=== PATIENT | female | born 1970 | race Caucasian/White ===

== ENCOUNTER 2019-03-04 16:09 | Outpatient (CLI) | payer MEDICARE, MEDICAID, SELFPAY ==
--- NOTE | 2019-03-04 | XR_ITS ---
WS: [id number] Cervical spine, 3 views, 03/04/2019 Clinical Data: NECK PAIN Comparison: None. Findings: No compression fractures are seen. The disc heights are normal. There is no prevertebral so ft tissue swelling. The odontoid is unremarkable. The soft tissues of the neck and the lung apices ar e normal. There is an infusion catheter with the port overlying the left upper chest. XR/XR cervical spine 3V* [id number] Impression: Negative cervical spine.
== END 2019-03-04 16:10 | disposition home or self-care (01) ==
LOC: RAD 16:14
PROVIDERS: Family Provider Nurse Practitioner Family; PCP Family Medicine; Visit Provider Family Medicine
DX: M54.2 Cervicalgia (principal); G89.29 Other chronic pain
CPT/HCPCS: 72040

== ENCOUNTER 2019-03-18 14:21 | Outpatient (CLI) | payer MEDICARE, MEDICAID, SELFPAY ==
--- NOTE | 2019-03-18 14:55 | MR_ITS ---
WS: [id number] MRI CERVICAL SPINE NONCONTRAST TECHNIQUE: Sagittal T1, T2 and STIR imaging. Axial T2, gradient, and fiesta imaging. CLINICAL INFORMATION: CHRONIC NECK PAIN COMPARISON: MRI FINDINGS: Exaggeration of the normal cervical lordosis. Chronic demyelinating plaque at C5-C6 unchanged from pr evious. No high-grade central canal narrowing. C2-C3: Normal. C3-C4: No significant disc bulging. Mild facet arthropathy. Spinal canal and foramen are patent. C4-C5: Mild disc bulging with slight effacement of ventral thecal sac. Mild right and no significant left foraminal narrowing. Mild facet arthropathy. Spinal canal is patent. C5-C6: Small central disc protrusion with mild central canal stenosis. Moderate facet arthropathy. Mi ld left and no significant right foraminal narrowing. C6-C7: Mild disc bulging. Mild left and no significant right foraminal narrowing. Spinal canal is pat ent. C7-T1: Normal. Visualized brain stem structures: Normal. Prevertebral soft tissues: Normal. MR/MR cervical spin wo con* [id number] IMPRESSION: 1. Chronic demyelinating plaques C5-C6 is unchanged from previous. Cord signal is otherwise normal. 2. Small central disc protrusion C5-C6 with mild central canal stenosis. This is similar in appearance to 2017. 3. Mild bony foraminal narrowing worse at right C4-C5, left C5-C6, and left C6 -C7.
== END 2019-03-18 14:22 | disposition home or self-care (01) ==
LOC: RADWPI 14:24
PROVIDERS: Family Provider Nurse Practitioner Family; PCP Family Medicine; Visit Provider Family Medicine
DX: M50.222 Other cervical disc displacement at C5-C6 level (principal); M48.02 Spinal stenosis, cervical region; M54.2 Cervicalgia; G89.29 Other chronic pain
CPT/HCPCS: 72141

== ENCOUNTER → 2019-04-18 11:21 | Outpatient (BNVA) | payer MEDICARE, MEDICAID, SELFPAY | PROVIDERS: Family Provider Nurse Practitioner Family; PCP Family Medicine; Visit Provider Specialist | DX: G35 Multiple sclerosis (principal); M47.12 Other spondylosis with myelopathy, cervical region; M47.22 Other spondylosis with radiculopathy, cervical region; F17.210 Nicotine dependence, cigarettes, uncomplicated | CPT/HCPCS: 96523; 99214; J0585 ==

== ENCOUNTER 2019-06-11 10:57 | Outpatient (CLI) | payer MEDICARE, MEDICAID, SELFPAY ==
--- NOTE | 2019-06-11 11:00 | XR_ITS ---
WS: [id number] LATERAL CERVICAL SPINE: 3 view. Lateral radiographs are performed in upright neutral, flexion and extension to the patient's toleranc e. HISTORY: Neck pain COMPARISON: 03/04/2019 Mild straightening of the normal cervical lordosis. With flexion and extension no instability. Disc s paces and vertebral bodies are well-maintained. XR/XR cervical spine fl/ex [id number] IMPRESSION: No cervical instability.
== END 2019-06-11 10:58 | disposition home or self-care (01) ==
LOC: RADWPI 11:04
PROVIDERS: Family Provider Nurse Practitioner Family; PCP Family Medicine; Visit Provider Licensed Practical Nurse
DX: M54.2 Cervicalgia (principal)
CPT/HCPCS: 72040

== ENCOUNTER → 2019-07-11 10:11 | Outpatient (BNVA) | payer MEDICARE, MEDICAID, SELFPAY | PROVIDERS: Family Provider Nurse Practitioner Family; PCP Family Medicine; Visit Provider Specialist | DX: G35 Multiple sclerosis (principal); G43.711 Chronic migraine without aura, intractable, with status migrainosus; M47.12 Other spondylosis with myelopathy, cervical region; M47.22 Other spondylosis with radiculopathy, cervical region; Z87.891 Personal history of nicotine dependence | CPT/HCPCS: 64615; 99213; J0585 ==

== ENCOUNTER 2019-07-31 09:55 | Outpatient (CLI) | payer MEDICARE, MEDICAID, SELFPAY ==
[2019-07-31 10:32] LABS: Basophils % 0.4 %; Eosinophils # 0.1 10^3/uL (0.0-0.8); Eosinophils % 2.4 %; Hematocrit 42.8 % (37.0-47.0); Hemoglobin 14.1 g/dL (11.5-15.3); Lymphocytes # 1.4 10^3/uL (0.8-4.8); Mean Corpuscular HGB Conc 32.9 g/dL (30.0-36.0); Mean Corpuscular Hemoglobin 30.7 pg (28.0-34.0); Mean Platelet Volume 11.3 fL (7.4-10.4); Monocytes # 0.4 10^3/uL (0.2-0.9); Monocytes % 7.5 %; Neutrophils # 3.5 10^3/uL (1.8-7.7); Neutrophils % 64.3 %; Nucleated Red Blood Cells % 0 %; Platelet Count 242 10^3/cmm (130-400); Red Cell Distribution Width 12.9 % (12.1-15.1); White Blood Count 5.5 10^3/uL (4.0-10.0)
[2019-07-31 11:11] LABS: Estmated Average Glucose 108; Hemoglobin A1C 5.4 % (4.0-6.0)
[2019-07-31 11:13] LABS: 25 Hydroxy Vitamin D 73 ng/mL (30-100); Alanine Aminotransferase 14 U/L (0-33); Albumin Level 4.4 g/dL (3.5-5.2); Alkaline Phosphatase 70 IU/L (35-105); Anion Gap 14.2 (5-19); Aspartate Amino Transferase 19 U/L (0-32); Blood Urea Nitrogen 9 mg/dL (6-20); Carbon Dioxide 27 mmol/L (22-29); Chloride 106 mmol/L (98-107); Chol HDL Ratio 4.31 mg/dL (0.0-4.40); Cholesterol 155 mg/dL (0-200); Glomerular Filtration Rate 75.9 mL/min (90-130); Glucose 88 mg/dL (65-115); HDL Cholesterol 36 mg/dL (60-100); LDL Cholesterol Calculated 92 mg/dL (50-129); LDL HDL Ratio 2.56 RATIO (0.00-3.22); Osmolality Calculated 291 mOsm/kg (285-295); Potassium 4.2 mmol/L (3.5-5.1); Sodium 143 mmol/L (136-145); Total Bilirubin 0.4 mg/dL (0.15-1.2); Total Protein 7.4 g/dL (6.6-8.7); Triglycerides 137 mg/dL (0-150); Vitamin B12 334 pg/mL (232-1245)
[2019-07-31 11:20] LABS: Creatinine Urine, Random 162 mg/dL (28-217)
[2019-07-31 11:22] LABS: Microalbum Creatinine Ratio Ur 6 mg/dL (0-20); Microalbumin Random Urine < 1 ug/dL (0-20)
[2019-07-31 11:28] LABS: Folate Level 8.2 ng/mL (4.8-37.3)
== END 2019-07-31 09:56 | disposition home or self-care (01) ==
LOC: LAB 10:00
PROVIDERS: Family Provider Nurse Practitioner Family; PCP Family Medicine; Visit Provider Family Medicine
DX: E78.1 Pure hyperglyceridemia (principal); E11.9 Type 2 diabetes mellitus without complications; E55.9 Vitamin D deficiency, unspecified; E53.8 Deficiency of other specified B group vitamins
CPT/HCPCS: 80053; 80061; 82044; 82306; 82607; 82746; 83036; 85025

== ENCOUNTER 2019-09-09 12:00 | Outpatient (CLI) | payer MEDICARE, MEDICAID, SELFPAY ==
[2019-09-09 13:08] LABS: Ferritin 106 ng/mL (15-150); Iron 119 ug/dL (37-145); Percent Saturation 34.6 % (20-50); Phosphorus 3.8 mg/dL (2.5-4.5); Thyroid Stimulating Hormone 1.26 uIU/mL (0.27-4.20); Total Iron Binding Capacity 343 mcg/dl; Unsaturated Iron Binding 224 ug/dL (112-347)
[2019-09-09 13:48] LABS: Calcium 9.2 mg/dL (8.5-10.5)
[2019-09-09 14:05] LABS: Folate Level 14.4 ng/mL (4.8-37.3)
[2019-09-09 19:05] LABS: Parathyroid Hormone 26.2 pg/mL (15-65)
== END 2019-09-09 12:01 | disposition home or self-care (01) ==
LOC: LAB 12:04
PROVIDERS: PCP Family Medicine; Visit Provider Surgery
DX: E66.9 Obesity, unspecified (principal)
CPT/HCPCS: 36415; 82310; 82728; 82746; 83540; 83550; 83735; 83970; 84100; 84443

== ENCOUNTER → 2019-10-03 11:09 | Outpatient (BNVA) | payer MEDICARE, MEDICAID, SELFPAY | PROVIDERS: PCP Family Medicine; Visit Provider Specialist | DX: G43.711 Chronic migraine without aura, intractable, with status migrainosus (principal); G35 Multiple sclerosis | CPT/HCPCS: 64615; 99214; J0585; J1642 ==

== ENCOUNTER 2019-10-09 13:49 | Outpatient (CLI) | payer MEDICARE, MEDICAID, SELFPAY ==
--- NOTE | 2019-10-09 14:00 | MM_ITS ---
WS: [id number] BILATERAL SCREENING DIGITAL MAMMOGRAM WITH CAD HISTORY: MAMMOGRAM COMPARISON: 03/28/2018 Bilateral CC and MLO views submitted. Computer aided detection analyzed. Breast composition: There are scattered areas of fibroglandular density. No suspicious masses, microc alcifications or architectural distortion. Benign calcifications within each breast. MM/[place] [id number] IMPRESSION: BI-RADS: 2-Benign FOLLOW UP: 1 Year Follow-up
--- NOTE | 2019-10-09 14:28 | XR_ITS ---
WS: [id number] EXAM: XR DEXA axial skeleton* [id number] DATE OF EXAMINATION: 10/09/2019, 1441 hours COMPARISON: None. HISTORY: 48 years year old female. Screening for osteoporosis. FINDINGS: Bone density of L1 through L4 is estimated at 1.164 g/cm sq: T-score of -0.1. This falls in the rang e of normal. Bilateral proximal femur regions have bone mineral density estimated at 0.915 and 1.057 g/cm sq, righ t and left respectively, correlating with a T-score of -0.7 and 0.4. This falls in the range of hayley l. 10-year fracture risk for major osteoporotic fracture is 4.3%. XR/XR DEXA axial skeleton* [id number] IMPRESSION: NORMAL BONE MINERAL DENSITY IN THE LUMBAR SPINE AND PROXIMAL FEMUR/FEMORAL NECK REGION.
== END 2019-10-09 13:50 | disposition home or self-care (01) ==
LOC: RADSHAW 13:49
PROVIDERS: PCP Family Medicine; Visit Provider Family Medicine
DX: Z12.31 Encounter for screening mammogram for malignant neoplasm of breast (principal); Z78.0 Asymptomatic menopausal state
CPT/HCPCS: 77067; 77080

== ENCOUNTER → 2019-11-01 09:05 | Outpatient (BNVA) | payer MEDICARE, MEDICAID, SELFPAY | PROVIDERS: PCP Family Medicine; Visit Provider Internal Medicine | DX: Z11.59 Encounter for screening for other viral diseases (principal) | CPT/HCPCS: 87635 ==

== ENCOUNTER 2019-11-05 05:53 | Day surgery (SDC) | payer MEDICARE, MEDICAID, SELFPAY ==
[2019-11-01 16:24] VITALS: BMI 27.1
--- NOTE | 2019-11-01 17:20 | SUR.PREOP ---
PATIENT HAS HX OF MALIGNANT HYPERTHERMIA!!!
[2019-11-05 06:02] VITALS: BP 135/73; PULSE 75; RESP 18; TEMP 36.3; O2SAT 100
--- NOTE | 2019-11-05 06:20 | W.PM.OPSUD ---
Surgery/Procedure H&P Update DATE OF PROCEDURE: November 05, 2019 DATE H&P PERFORMED: 10/21/19 H&P UPDATE INFORMATION: I have reviewed H&P completed within last 30 days, I have examined patient prior to procedure and No changes to prior documentation PREOP DIAGNOSIS: Screening colonoscopy and explantation of left upper chest Port-A-Cath PLANNED PROCEDURE: Operation Date: 11/05/19 07:00 Proposed Procedures p Colonoscopy MALIGNANT [id number] k59.00 G35(Not Applicable) - Rick Benjamin MD s Portacath Removal(Not Applicable) - Rick Benjamin MD
[2019-11-05] MEDS: sodium chloride 0.9% 1,000 ML 30 ML IV (06:27)
--- NOTE | 2019-11-05 06:44 | ANES.PREANE2 ---
Pre-Anesthetic Assessment Pre-Anesthetic Assessment: Height/Weight: Height 1.74 m Weight 82.1 kg Temp Pulse Resp BP Pulse Ox 97.3 F L 75 18 135/73 100 11/05/19 06:02 11/05/19 06:02 11/05/19 06:02 11/05/19 06:02 11/05/19 06:02 Preop Diagnosis: Screening colonoscopy and explantation of left upper chest Port-A-Cath Proposed Procedure: Operation Date: 11/05/19 07:00 Proposed Procedures p Colonoscopy MALIGNANT [id number] k59.00 G35(Not Applicable) - Rick Benjamin MD s Portacath Removal(Not Applicable) - Rick Benjamin MD Familial anesthetic complications: Malignant Hyperthermia Was Beta Yumiko taken within 24 hours: N/A Last intake: Intake Last Liquid Date 11/04/19 Last Liquid Time 23:30 Last Solid Date 11/03/19 Last Solid Time 17:00 Social: Social History: Tobacco and No alcohol Exam: Pre-Anes Outpt Exam: alert, oriented x 3, clear to auscultation bilaterally and regular rate & rhythm Airway: Cervical ROM: WNL MP: 2 Dentition: False Pulmonary: Pulmonary: Asthma GI: GI: GERD Metabolic: Metabolic: DM (improved since weight loss, now diet controlled) Musc/skel: Comments: Multiple Sclerosis - patient aware of risk of exacerbation with any anesthetic Anesthetic Plan: ASA status: 2 Anesthesia: MAC Risk of > 500 ml blood loss (7ml/kg in children): No Other Pertinent Information: hx of malignant hyperthermia Meds/Allergies Current Medications: Current Medications Generic Name Dose Route Start Last Admin Trade Name Freq PRN Reason Stop Dose Admin Sodium Chloride 1,000 mls @ 30 ml s/hr 11/05/19 06:00 11/05/19 06:27 Sodium Chloride 0.9% IV 30 mls/hr .Q24H [place] Administration PFSH Anesthesia PFSH: Medical History (Updated 10/21/19 @ 15:53 by Rick Benjamin MD) Cervical disc disease Cervical disc disorder with myelopathy of mid-cervical region Chronic migraine without aura, intractable, with status migrainosus Chronic neck pain with abnormal neurologic examination DM II (diabetes mellitus, type II), controlled GERD (gastroesophageal reflux disease) Incomplete bladder emptying Malignant hyperthermia Mild cognitive impairment Multiple sclerosis Multiple sclerosis Neurogenic bladder Recurrent UTI Surgical History H/O carpal tunnel repair H/O rotator cuff surgery H/O tubal ligation H/O: hysterectomy History of appendectomy History of cholecystectomy History of tonsillectomy and adenoidectomy Family History Other CAD (coronary artery disease) Diabetes Hypertension Multiple sclerosis Stroke Social History Smoking and tobacco status: current every day smoker cigarettes Packs smoked per day: 0.5 Alcohol intake: never Lives independently: Yes Marital status: / Current occupational status: disabled History of recent travel: No Female Reproductive History: Para: 3 Spontaneous abortions: Yes Data Anesthesia Cardiac Studies: No Data to Display
[2019-11-05] MEDS: lidocaine 2% INJ 20 mL INJECTION (07:17)
--- NOTE | 2019-11-05 07:38 | XR_ITS ---
WS: [id number] EXAM: AP CHEST: PORTABLE SUPINE DATE OF EXAM: 11/05/2019, 0741 hours COMPARISON: Chest x-ray from 03/01/2017 HISTORY: Patient is 48 years old with Port-A-Cath removal. FINDINGS: The cardiac silhouette is normal in size. The mediastinal contours are distorted. Port-A-Cath tubi ng overlies the central mediastinum. Surgical forceps appear to be overlying the peripheral aspect of the Port-A-Cath tubing. The pulmon audrey vascularity is normal. The lungs are clear of infiltrate. There is no effusion or pneumothorax. No acute bony abnormality is seen. XR/XR chest 1V portable [id number] IMPRESSION: Port-A-Cath tubing as described overlying the mediastinum. No pneumothorax or c onsolidating infiltrate. Follow-up upright imaging recommended to be obtained o nce the patient is out of surgery.
[2019-11-05] MEDS: neomycin-poly-bacitracin oint 28 gm 1 APPLIC TOPICAL (08:12)
--- NOTE | 2019-11-05 08:36 | XR_ITS ---
WS: [id number] EXAM: AP CHEST: PORTABLE UPRIGHT DATE OF EXAM: 11/05/2019, 0842 hours COMPARISON: Intraoperative spot images from earlier on the same date. HISTORY: Patient is 48 years old with Port-A-Cath removal. FINDINGS: The cardiac silhouette is normal in size. The mediastinal contours show portions of a residual por t catheter tubing remain in place in the left subclavian region extending into in the proximal SVC re gion. The proximal aspect of the remaining portion of the catheter appears crimped. The pulmonary v ascularity is normal. Lungs are clear other than minimal atelectasis medial right lung base There i s no effusion or pneumothorax. No acute bony abnormality is seen. XR/XR chest 1V portable [id number] IMPRESSION: Portions of the Port-A-Cath tubing remain in place. Minimal atelectasis medial right lung base. No pneumothorax.
--- NOTE | 2019-11-05 08:37 | P.OP_ITS ---
Operative Report Date of procedure: November 05, 2019 Pre-op Diagnosis: Screening colonoscopy and explantation of left upper chest Port-A-Cath Post-op diagnosis: same Post-op Findings: Explantation of left upper chest Port-A-Cath with residual proximal catheter remained in place without complication Screening colonoscopy revealed cecal polyp Procedure Done: Explantation of left upper chest Port-A-Cath with residual proximal catheter remained in place without complication Screening colonoscopy revealed cecal polyp(not retrieved) Implants: Left upper chest residual catheter clipped with vascular clips x4 . cecal polypectomy site Endo Clip placement Specimens removed/disposition: Left upper chest port gross pathology Cecal polyp not retrieved Surgeon: Rick Benjamin Oracle Apex Developer: laboratory technologist Roman digital controls technical officer Betty Circulating nurse Sonia Milan Anesthesia: MAC (Karla Hurley) Estimated blood loss (mL): 10 Condition: stable Disposition: same day Brief History: This is a pleasant 48 years old female patient well-known to me as she undergone laparoscopic vertical sleeve gastrectomy for weight loss before 1 year or so and she has been having history of multiple sclerosis.got better yet she did have left upper chest Port-A-Cath in place before that and now she is done with her treatment and she needs it out. In addition to screening colonoscopy as she had suboptimal colon prep before. After further counseling the patient she did agree to proceed with explantation of left upper chest Port-A-Cath and screening colonoscopy. Informed consent per chart Procedure: After identifying the patient holding area and the left upper chest was born by me, patient was taken to the OR and placed in supine position , IV propofol was infused by the anesthesia provider and timeout was done verifying patient's name, planned procedure and destination after the procedure, all were in agreement.SCDs confirmed to be functioning, preoperative antibiotics administered per protocol, and beta mya protocol was confirmed, appropriate positioning of the patient was done by me. Prep and drape of the left upper chest was done under the usual sterile technique,injection of lidocaine 2% at the site of the planned incision started by an transverse incision including the previous scar of the Port-A-Cath placement which was located far medial than the classic site of port placement on the left upper chest, dissection of the port was done and freed from the surrounding adhesions and on attempt to retrieve the catheter there was resistance encountered, so I elected to perform a counterincision at the site of the previous stick at the left subclavius region and further dissection of the catheter was done all the way to the medial head of the left clavicle yet continued to have resistance. At this point I did obtain a chest x-ray intraoperatively that showed the distal part of the catheter remains in the right side of the heart towards the SVC, so I decided at this point to consult with my partner Dr. Bruno cardiothoracic surgeon and he recommended to divide the catheter as far as the dissection would take me out by application of hemoclips and leave the remaining of the catheter at the wound bed. Irrigation of the wounds were done after application of hemoclips on the proximal part of the catheter without tension and a Prolene suture was used to anchor the tip of the catheter to the bed of the wound followed by closure using 2-0 Vicryl then 3-0 nylon suture followed by dry dressing. The remaining of the port and catheter was sent for gross pathology Count was completed for instruments, needles and sponges towards the end of this part of the procedure and was appropriate. Attention now was deviated towards the colonoscopy part of the procedure, patient was then turned to be in the left lateral position Following that a digital rectal examination was done that was normal before insertion of the colonoscopy, the scope was then introduced via the anus under direct visualization, all the way to the cecum, prep of the colon was appropriate, there was 1 polyp identified in the cecum and snare was applied otherwise at the polyp was not retrieved, no masses or diverticular disease or strictures otherw ise detected, the scope was then retrieved back ,time for withdrawal exceeded 7 minutes, gas was deflated on the way out.Retroflex was done at the end showing no abnormalities of the anal canal. Patient tolerated the procedure well and was taken to the recovery area in stable condition I was present for the whole entire procedure
[2019-11-05 08:44] VITALS: BP 121/77; PULSE 71; RESP 16; TEMP 36.1; O2SAT 97
--- NOTE | 2019-11-05 09:07 | ANE.PACU2 ---
Inpatient post-anesthesia follow up: Airway intact: Yes Vital signs: Temperature 97 F Pulse Rate 71 Respiratory Rate 16 Blood Pressure 121/77 Pulse Oximetry 97 Oxygen Delivery Me thod Room Air Oxygen Flow Rate Fraction of Inspir ed Oxygen Hydration adequate: Yes Nausea and vomiting: No Pain level: 1 Mental status: Baseline
[2019-11-05 09:11] VITALS: BP 120/73; PULSE 62; RESP 20; O2SAT 96
== END 2019-11-05 09:38 | disposition home or self-care (01) ==
PROVIDERS: PCP Family Medicine; Visit Provider Surgery
PROC: 0DJD8ZZ Inspection of Lower Intestinal Tract, Via Natural or Artificial Opening Endoscopic (ICD-10-PCS; CPT 45378; principal; 2019-11-05 07:00)
PROC: (CPT 36589; 2019-11-05 07:00)
DX: Z12.11 Encounter for screening for malignant neoplasm of colon (principal); Z45.2 Encounter for adjustment and management of vascular access device; G35 Multiple sclerosis; J45.909 Unspecified asthma, uncomplicated; K21.9 Gastro-esophageal reflux disease without esophagitis; E11.9 Type 2 diabetes mellitus without complications; Z98.84 Bariatric surgery status; D12.0 Benign neoplasm of cecum
CPT/HCPCS: 36589; 12345; 45385; 71045; 88300; J0690; J2250; J2704; J3010; J7030

== ENCOUNTER 2020-01-15 08:24 | Outpatient (CLI) | payer MEDICARE, MEDICAID, SELFPAY ==
[2020-01-15] MEDS: acetaminophen 500 mg Tablet 1000 MG PO (09:05)
[2020-01-15] MEDS: diphenhydrAMINE 50 mg/mL SDV 1mL 25 MG IVP (09:10)
== END 2020-01-15 08:25 | disposition home or self-care (01) ==
LOC: NSACUTE 08:27
PROVIDERS: PCP Family Medicine; Visit Provider Specialist
DX: G43.711 Chronic migraine without aura, intractable, with status migrainosus (principal); G35 Multiple sclerosis; F17.210 Nicotine dependence, cigarettes, uncomplicated
CPT/HCPCS: 64615; 96365; 96366; 96375; 99213; J0585; J1200; J2350; J2930; J7050

== ENCOUNTER 2020-02-03 08:36 | Outpatient (CLI) | payer MEDICARE, MEDICAID, SELFPAY ==
[2020-02-03] MEDS: acetaminophen 500 mg Tablet 1000 MG PO (10:01)
[2020-02-03] MEDS: diphenhydrAMINE 50 mg/mL SDV 1mL 25 MG IVP (10:05)
--- NOTE | 2020-02-03 10:26 | PC.NURSE ---
iv access obtained by NANCI Perkinsclerical supervisor.
== END 2020-02-03 08:37 | disposition home or self-care (01) ==
PROVIDERS: PCP Family Medicine; Visit Provider Specialist
DX: G35 Multiple sclerosis (principal)
CPT/HCPCS: 96365; 96366; 96375; J1200; J2350; J2930; J7050

== ENCOUNTER → 2020-04-14 15:01 | Outpatient (BNVA) | payer MEDICARE, MEDICAID, SELFPAY | PROVIDERS: PCP Family Medicine; Visit Provider Family Medicine | DX: R30.0 Dysuria (principal); F51.04 Psychophysiologic insomnia; Z68.29 Body mass index [BMI] 29.0-29.9, adult; F17.219 Nicotine dependence, cigarettes, with unspecified nicotine-induced disorders | CPT/HCPCS: 81000; 87077; 87086; 87184 ==

== ENCOUNTER → 2020-05-07 11:08 | Outpatient (BNVA) | payer MEDICARE, MEDICAID, SELFPAY | PROVIDERS: PCP Family Medicine; Visit Provider Specialist | DX: G43.711 Chronic migraine without aura, intractable, with status migrainosus (principal); G35 Multiple sclerosis; F17.210 Nicotine dependence, cigarettes, uncomplicated | CPT/HCPCS: 64615; 99212; J0585 ==

== ENCOUNTER 2020-07-03 17:25 | Emergency (ER) | payer MEDICARE, MEDICAID, SELFPAY ==
[2020-07-03 18:10] VITALS: BP 131/80; PULSE 93; RESP 18; TEMP 36.5; O2SAT 96; BMI 27.3
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
[2020-07-03] MEDS: tetanus-diphtheria tox (adult) 0.5 mL SDV IM (18:41)
[2020-07-03] MEDS: silver sulfadiazine cream 1% 50 gm 1 APPLIC TOPICAL (18:48)
--- NOTE | 2020-07-07 14:51 | DCPLANNER ---
item repair manager had message to schedule a follow up appointment for patient with Wound Care. item repair manager called Wound Care, spoke with Lisseth, gave clinic patients information. A follow up appointment was scheduled for Wednesday, July 15, 2020 at 10:[address] Bruno. item repair manager called patient with appointment information.
--- NOTE | 2020-08-06 17:00 | DCPLANNER ---
Appointment cancelled with Wound Care.
== END 2020-07-03 19:09 | disposition home or self-care (01) ==
PROVIDERS: Emergency Provider Physician Assistant; PCP Family Medicine
DX: T24.001A Burn of unspecified degree of unspecified site of right lower limb, except ankle and foot, initial encounter (principal); T24.002A Burn of unspecified degree of unspecified site of left lower limb, except ankle and foot, initial encounter; T22.011A Burn of unspecified degree of right forearm, initial encounter; X08.8XXA Exposure to other specified smoke, fire and flames, initial encounter; E11.9 Type 2 diabetes mellitus without complications; G35 Multiple sclerosis; F17.210 Nicotine dependence, cigarettes, uncomplicated; Z23 Encounter for immunization
CPT/HCPCS: 16020; 90471; 90714; 99283

== ENCOUNTER 2020-07-29 08:24 | Outpatient (CLI) | payer MEDICARE, MEDICAID, SELFPAY ==
[2020-07-29] MEDS: acetaminophen 500 mg Tablet 1000 MG PO (09:29)
[2020-07-29] MEDS: diphenhydrAMINE 50 mg/mL SDV 1mL 12.5 MG IVP (09:55)
--- NOTE | 2020-07-29 10:02 | PC.NURSE ---
Lot Numbers Ocrevus [id number] 01/20/21 Brina [id number] 10/21/20 Naya Medrol 04/20/22
== END 2020-07-29 08:25 | disposition home or self-care (01) ==
LOC: NSACUTE 08:27
PROVIDERS: PCP Family Medicine; Visit Provider Specialist
DX: G35 Multiple sclerosis (principal); G43.711 Chronic migraine without aura, intractable, with status migrainosus; G62.9 Polyneuropathy, unspecified; F17.210 Nicotine dependence, cigarettes, uncomplicated
CPT/HCPCS: 64615; 96365; 96366; 96375; 99214; J0585; J1200; J2350; J2930; J7040

== ENCOUNTER → 2020-08-18 08:57 | Outpatient (BNVA) | payer MEDICARE, MEDICAID, SELFPAY | PROVIDERS: PCP Family Medicine; Visit Provider Family Medicine | DX: E78.5 Hyperlipidemia, unspecified (principal); F33.1 Major depressive disorder, recurrent, moderate; F41.9 Anxiety disorder, unspecified | CPT/HCPCS: 80053; 80061 ==

== ENCOUNTER 2020-08-19 08:44 | Outpatient (CLI) | payer MEDICARE, MEDICAID, SELFPAY ==
--- NOTE | 2020-08-19 09:10 | MR_ITS ---
WS: [id number] MRI BRAIN WITHOUT CONTRAST HISTORY: MS COMPARISON: 11/29/2016 TECHNIQUE: Diffusion imaging, multiplanar T1, T2 and FLAIR imaging obtained. No evidence for acute hemorrhage or infarct. Numerous T2 and FLAIR signal hyperintensities are stable since 2017. RIGHT superior parafalcine, bila teral subcortical, periventricular and pericallosal signal abnormalities are identified. There is vanessa e very subtle increased T2 signal bilaterally within the cerebellum which was also present on the talib or exam. Distribution consistent with history of demyelinating disease. There is a focal area of incr eased T2 signal in the posterior corpus callosum which was not present on the prior examination. This is only seen on the sagittal T2 FLAIR sequence and may be a new lesion as it was not identified on t he study of 11/29/2016. No hemorrhage or necrosis within the lesions. Visualized brainstem and paul a re negative. No hydrocephalus. No inferior displacement of cerebellar tonsils. The sella turcica and pituitary gland are unremarkabl e. Dural venous sinuses and round [place] demonstrate no abnormality on this unenhanced studies. Paranasal sinuses: Mucous retention cyst in the superior RIGHT maxillary sinus. Mastoid air cells: Normal. Calvarium and scalp: Intact. MR/MR head wo con* [id number] IMPRESSION: 1. Demyelinating lesions as described above consistent with a history of multi ple sclerosis. 2. Single new demyelinating lesion seen only on the FLAIR sagittal sequence in the posterior corpus callosum. 3. MRI brain evaluation was ordered noncontrast. Multiple attempts to contact the physician's office to confirm this order. Unable to contact the physician's office. This was explained to the patient. If contrast is needed for this mult iple sclerosis follow-up patient will return and additional imaging can be perf ormed at that time.
--- NOTE | 2020-08-19 09:11 | MR_ITS ---
WS: [id number] MRI CERVICAL SPINE NONCONTRAST HISTORY: MS COMPARISON: 03/18/2019 Technique: Multiplanar, multisequence noncontrast imaging of the cervical spine. Normal posterior alignment. Very mild disc desiccation. No fractures or marrow edema. Very slight increased T2 signal in the cervical cord at C5-C6 extends over length of 12 mm similar to the prior study. Very subtle area of increased signal also the cervical cord at the C3 level suspici ous for an additional area of demyelination which may not have been present on prior studies. Craniocervical junction, C1 and C2 relationship, odontoid process and soft tissues are normal. C2-C3: Normal. C3-C4: Normal. C4-C5: Small RIGHT foraminal osteophyte with no stenosis. C5-C6: Tiny central disc protrusion and small osteophytes with no stenosis. C6-C7: Normal. C7-T1: Normal. Paraspinal soft tissue are normal. MR/MR cervical spin wo con* [id number] IMPRESSION: 1. Chronic mild plaque at C5-6 stable since 11/29/2016. 2. Indeterminate for new demyelinating plaque at the C3 level. 3. Study was performed without IV contrast as per order.
== END 2020-08-19 08:45 | disposition home or self-care (01) ==
LOC: RADWPI 08:51
PROVIDERS: PCP Family Medicine; Visit Provider Specialist
DX: G35 Multiple sclerosis (principal)
CPT/HCPCS: 70551; 72141

== ENCOUNTER 2020-09-28 07:56 | Outpatient (CLI) | payer MEDICARE, MEDICAID, SELFPAY ==
--- NOTE | 2020-09-28 08:11 | MR_ITS ---
WS: [id number] MRI cervical spine with contrast. HISTORY: Multiple sclerosis follow-up. MRI is performed of the cervical spine postcontrast. The noncontrast examination was performed on 07/23. Noncontrast sagittal and axial T1 sequences are first performed. No enhancing plaques are noted within the cervical cord. No cord atrophy or enlargement. Posterior al ignment of the cervical vertebrae is normal. Visualized portion of the brainstem is also normal. MR/MR cervical spine wo/w [id number] IMPRESSION: No active demyelinating plaques in the cervical spine.
--- NOTE | 2020-09-28 08:11 | MR_ITS ---
WS: [id number] MRI BRAIN WITH AND WITHOUT CONTRAST HISTORY: G35 - Multiple sclerosis COMPARISON: Noncontrast MR brain 08/19/2020. TECHNIQUE: Limited, Multiplanar imaging performed through the brain with MultiHance 18 ml's IV. Limit ed precontrast imaging. Prior noncontrast study from 08/19/2020 is read in conjunction with this unenh anced study. There are no enhancing T2 or FLAIR signal hyperintensities. Previously described callosal septal inte rface signal abnormalities from demyelination do not enhance. The additional T2 signal hyperintensiti es bilaterally in the cerebellum also do not enhance. There is focal thinning of the posterior corpus callosum from remote demyelinating plaque which does not enhance. No enhancement within the brainste m or visualized cervical cord. MR/MR head wo/w con [id number] IMPRESSION: 1. No active demyelinating lesions within the brain or visualized brainstem. 2. Postcontrast evaluation of the brain in writing conjunction with the noncon trast examination from 08/19/2020.
[2020-09-28] MEDS: gadobenate dimeglumine 20 mL vial IV (09:19)
== END 2020-09-28 07:57 | disposition home or self-care (01) ==
PROVIDERS: PCP Family Medicine; Visit Provider Specialist
DX: G35 Multiple sclerosis (principal)
CPT/HCPCS: 70553; 72156; A9577

== ENCOUNTER → 2020-10-13 12:26 | Outpatient (BNVA) | payer MEDICARE, MEDICAID, SELFPAY | PROVIDERS: PCP Family Medicine; Visit Provider Family Medicine | DX: N39.41 Urge incontinence (principal); F41.9 Anxiety disorder, unspecified; F32.9 Major depressive disorder, single episode, unspecified | CPT/HCPCS: 81000; 87086 ==

== ENCOUNTER → 2020-10-22 09:18 | Outpatient (BNVA) | payer MEDICARE, MEDICAID, SELFPAY | PROVIDERS: PCP Family Medicine; Visit Provider Specialist | DX: G35 Multiple sclerosis (principal); G43.709 Chronic migraine without aura, not intractable, without status migrainosus; G62.9 Polyneuropathy, unspecified; M25.552 Pain in left hip | CPT/HCPCS: 64615; 99214; J0585 ==

== ENCOUNTER 2020-10-24 10:58 | Outpatient (CLI) | payer MEDICARE, MEDICAID, SELFPAY ==
--- NOTE | 2020-10-24 11:38 | XRR_ITS ---
PROCEDURE INFORMATION: Exam: XR Left Hip Exam date and time: 10/24/2020 11:38 AM Age: 49 years old Clinical indication: Hip pain; Left hip; Additional info: M25.559 - pain in unspecified hip TECHNIQUE: Imaging protocol: XR Left hip. Views: 2 or 3 views hip with pelvis when performed. COMPARISON: CR Hip 2-3v LEFT wwo Pelv* [id number] 01/03/2018 11:33 AM FINDINGS: Bones/joints: Unremarkable. No acute fracture. Soft tissues: Unremarkable. XR/XR hip LT 2-3V wo/w pel* [id number] IMPRESSION: No acute findings.
== END 2020-10-24 10:59 | disposition home or self-care (01) ==
PROVIDERS: PCP Family Medicine; Visit Provider Specialist
DX: M25.552 Pain in left hip (principal)
CPT/HCPCS: 73502

== ENCOUNTER → 2020-10-29 12:05 | Outpatient (BNVA) | payer MEDICARE, MEDICAID, SELFPAY | PROVIDERS: PCP Family Medicine; Referring Provider Specialist; Visit Provider Specialist | DX: G35 Multiple sclerosis (principal); G62.89 Other specified polyneuropathies; R20.0 Anesthesia of skin; R20.2 Paresthesia of skin | CPT/HCPCS: 95913 ==

== ENCOUNTER → 2020-11-24 11:14 | Outpatient (BNVA) | payer MEDICARE, MEDICAID, SELFPAY | PROVIDERS: PCP Family Medicine; Visit Provider Specialist | DX: M70.62 Trochanteric bursitis, left hip (principal); Y93.9 Activity, unspecified; G57.30 Lesion of lateral popliteal nerve, unspecified lower limb; G62.9 Polyneuropathy, unspecified; F41.9 Anxiety disorder, unspecified; F32.9 Major depressive disorder, single episode, unspecified; G43.711 Chronic migraine without aura, intractable, with status migrainosus; G35 Multiple sclerosis; F17.219 Nicotine dependence, cigarettes, with unspecified nicotine-induced disorders | CPT/HCPCS: 20550; 20610; 99214; J1030; J3490 ==

== ENCOUNTER → 2021-01-19 09:55 | Outpatient (BNVA) | payer MEDICARE, MEDICAID, SELFPAY | PROVIDERS: PCP Family Medicine; Visit Provider Specialist | DX: G35 Multiple sclerosis (principal); G57.30 Lesion of lateral popliteal nerve, unspecified lower limb; R20.0 Anesthesia of skin; R20.2 Paresthesia of skin; F17.200 Nicotine dependence, unspecified, uncomplicated | CPT/HCPCS: 99214 ==

== ENCOUNTER 2021-01-20 08:56 | Outpatient (CLI) | payer MEDICARE, MEDICAID, SELFPAY ==
[2021-01-20 09:22] VITALS: BP 120/75; PULSE 87; RESP 18; TEMP 36.7; O2SAT 97
[2021-01-20] MEDS: acetaminophen 500 mg Tablet 1000 MG PO (10:11)
[2021-01-20] MEDS: sodium chloride 0.9% 250 ML 50 ML IV (10:13)
[2021-01-20] MEDS: diphenhydrAMINE 50 mg/mL SDV 1mL 25 MG IV (10:13)
[2021-01-20 10:47] VITALS: BP 115/78; PULSE 76; RESP 18; TEMP 36.5; O2SAT 95
[2021-01-20 11:20] VITALS: BP 106/76; PULSE 70; RESP 18; TEMP 36.3; O2SAT 95
[2021-01-20 12:53] VITALS: BP 127/84; PULSE 72; RESP 18; TEMP 36.4; O2SAT 97
== END 2021-01-20 08:57 | disposition home or self-care (01) ==
PROVIDERS: PCP Family Medicine; Referring Provider Specialist; Visit Provider Specialist
DX: G35 Multiple sclerosis (principal)
CPT/HCPCS: 96365; 96366; 96375; J1200; J2350; J2930; J7040; J7050

== ENCOUNTER → 2021-01-28 09:37 | Outpatient (BNVA) | payer MEDICARE, MEDICAID, SELFPAY | PROVIDERS: PCP Family Medicine; Visit Provider Specialist | DX: G43.709 Chronic migraine without aura, not intractable, without status migrainosus (principal); G35 Multiple sclerosis; M50.020 Cervical disc disorder with myelopathy, mid-cervical region, unspecified level | CPT/HCPCS: 64615; 99214; J0585 ==

== ENCOUNTER 2021-02-07 11:05 | Emergency (ER) | payer MEDICARE, MEDICAID, SELFPAY ==
[2021-02-07 11:13] VITALS: BP 156/65; PULSE 105; RESP 26; TEMP 36.8; O2SAT 98; BMI 25.0
--- NOTE | 2021-02-07 11:17 | W.ED.LOWEXIN ---
HPI - Extremity Injury (Lower) General: Chief Complaint: Extremity Injury, Lower Stated Complaint: R ANKLE INJURY FROM DOG CHAIN Time Seen by Provider: 02/07/21 11:07 Source: patient Mode of arrival: wheelchair Limitations: no limitations History of Present Illness: HPI Narrative: Patient is a 50-year-old female presents to ED today for evaluation of right ankle injury. Patient states she was outside caring for her dog when the dog's leash/cable got wrapped around her leg. She apparently did not feel the cable around her ankle (reports secondary to chronic neuropathy) and thus proceeded to get into her vehicle and drive thus tightening/snapping the cable. complaint: ankle injury Onset (ago): hour(s) Injury: Left: ankle Place: home Severity: severe Severity scale (1-10): 10 Relieving factors: nothing Exacerbating factors: movement and palpation Associated symptoms: Reports inability to bear weight Other symptoms: none Review of Systems Musc: Reports: joint pain (R ankle) and joint swelling (R ankle) Skin/Breast: Reports: other (no lacerations/abrasions/ligature markings) Neuro: Reports: numbness in extremities (chronic) [facility] ED PFSH: Medical History (Updated 02/07/21 @ 12:04 by PHILLY Ibarra) Cervical disc disease Cervical disc disorder with myelopathy of mid-cervical region Chronic migraine without aura, intractable, with status migrainosus Chronic neck pain with abnormal neurologic examination DM II (diabetes mellitus, type II), controlled GERD (gastroesophageal reflux disease) Incomplete bladder emptying Malignant hyperthermia Mild cognitive impairment Multiple sclerosis Multiple sclerosis Neurogenic bladder Recurrent UTI Surgical History H/O carpal tunnel repair H/O rotator cuff surgery H/O tubal ligation H/O: hysterectomy History of appendectomy History of cholecystectomy History of tonsillectomy and adenoidectomy Family History Other CAD (coronary artery disease) Diabetes Hypertension Multiple sclerosis Stroke Social History Alcohol intake: never Lives independently: Yes Marital status: / Current occupational status: disabled History of recent travel: No Female Reproductive History: Para: 3 Spontaneous abortions: Yes Physical Exam Const: COMMON NORMALS: patient oriented x3, no limitations, alert and well nourished GENERAL APPEARANCE: cooperative and in distress (appears uncomfortable secondary to pain) Extremity: GENERAL: Yes normal exam except as noted RIGHT LOWER EXTREMITY: Yes foot & digits (diffuse pain surrounding R ankle; swelling laterally) Right ankle: Yes ROM (limited secondary to pain), Yes neurovascular exam (states sensation is at baseline) and Yes other (pt has strong DP/PT pulses; normal cap refill) Neuro: COMMON NORMALS: patient oriented x3 SENSORIUM/ORIENTATION: Yes alert Skin: COMMON NORMALS: no rashes or lesions noted GENERAL SKIN EXAM: no rashes or lesions noted TRAUMA: no lacerations or abrasions Course Vital Signs: Vital signs: Vital Signs Temperature 98.3 F 02/07/21 11:13 Pulse Rate 105 H 02/07/21 11:30 Respiratory Rate 26 H 02/07/21 11:30 Blood Pressure 156/65 02/07/21 11:30 Pulse Oximetry 98 02/07/21 11:30 MDM - Extremity Injury (Lower) MDM Narrative: Medical decision making narrative: Will splint, have pt be non-weight bearing, instructions for ice/elevation, and will have her see orthopedics early this week for further evaluation. Imaging Data^: XR R ankle: My impression: bimalleolar fracture, no dislocation or obvious joint widening Radiologist's impression: [address] [place] [address] XRay Report Signed Patient: Ranjit Bundy Unit #: [id number] : 1970 Age/Sex: 50 / F ADM Date: 02/07/21 Loc: ER Room/Bed: Attending Dr: Ordering Provider/Ordering MD: Kelly Tsang Date of Service: 02/07/21 Procedure(s): XR ankle RT min 3V* [id number] Accession Number(s): [id number] Report Number: [id number] PROCEDURE INFORMATION: Exam: XR Right Ankle Exam date and time: 02/07/2021 11:23 AM Age: 50 years old Clinical indication: Injury or trauma; Fall; Blunt trauma; Ankle; Right; Additional info: Trauma/injury TECHNIQUE: Imaging protocol: XR Right ankle. Views: 3 or more views. COMPARISON: No relevant prior studies available. FINDINGS: Bones/joints: There is an acute bimalleolar fracture seen with comminuted transverse mildly displaced fracture of the distal fibula and longitudinal mildly displaced fracture of the medial malleolus. Soft tissues: Soft tissue edema is seen in the anterior, and lateral aspect of the ankle XR/XR ankle RT min 3V* [id number] IMPRESSION: 1. Acute bimalleolar fracture 2. Soft tissue effusion anterior l and lateral ankle Dictated By: Santiago Leonard Signed By: Santiago Leonard Signed Date/Time: 02/07/21 1320 DD/ 1123 Discharge Plan Discharge Patient Disposition: Home Clinical Impression: Bimalleolar ankle fracture Qualifiers: Encounter type: initial encounter Fracture type: closed Laterality: right Qualified Code(s): S82.841A - Displaced bimalleolar fracture of right lower leg, initial encounter for closed fracture Condition: Stable Prescriptions: New hydrocodone-acetaminophen 5-325 mg tablet 1 tab PO Q4H PRN (Reason: pain) Qty: 20 RF: 0 No Action cholecalciferol (vitamin D3) 1,000 unit capsule 2,000 unit PO DAILY@0700 RF: 0 Botox 100 unit recon soln 155 unit IM .q12w RF: 0 cyanocobalamin (vitamin B-12) 1,000 mcg/mL solution 1,000 mcg IM Q7D RF: 0 zonisamide [Zonegran] 100 mg capsule 200 mg PO DAILY Qty: 60 RF: 1 zonisamide [Zonegran] 100 mg capsule 400 mg PO DAILY Qty: 120 RF: 0 Lyrica 150 mg capsule 150 mg PO TID 30 Days Qty: 90 RF: 3 Kesimpta Pen 20 mg/0.4 mL pen injector 20 mg SUBCUT .Weekly Qty: 0.4 RF: 12 (DME) diabetic shoes See Rx Instructions .Route .MEDSUPPLY Qty: 1 RF: 0 Ocrevus 30 mg/mL solution See Rx Instructions .ROUTE .COMPLEX RF: 0 (DME) nebulizer See Rx Instructions .Route .MEDSUPPLY Qty: 1 RF: 0 ciprofloxacin HCl 500 mg tablet 500 mg PO BID 7 Days Qty: 14 RF: 0 Linzess 72 mcg capsule 72 mcg PO QAM Qty: 30 RF: 0 (DME) catheter 12 Fr misc See Rx Instructions .ROUTE .MEDSUPPLY Qty: 100 RF: 2 albuterol sulfate 2.5 mg /3 mL (0.083 %) solution for nebulization 2.5 mg INHALATION Q4H PRN (Reason: shortness of breath or wheezing) 30 Days Qty: 180 RF: 0 lovastatin 40 mg tablet 40 mg PO DAILY@0700 90 Days Qty: 90 RF: 0 albuterol sulfate [Ventolin HFA] 90 mcg/actuation HFA aerosol inhaler 2 puff INHALATION Q6H PRN (Reason: shortness of breath or wheezing) 30 Days Qty: 8.5 RF: 0 Flonase Allergy Relief 50 mcg/actuation spray,suspension 1 spray intranasal BID@0700,1900 90 Days Qty: 54.6 RF: 0 buspirone 5 mg tablet 5 mg PO BID 90 Days Qty: 180 RF: 0 trazodone 100 mg tablet 300 mg PO DAILY@1900 30 Days Qty: 90 RF: 2 duloxetine 60 mg capsule,delayed release(DR/EC) 60 mg PO DAILY Qty: 30 RF: 0 fenofibrate nanocrystallized 145 mg tablet 145 mg PO DAILY@0700 30 Days Qty: 30 RF: 0 omeprazole 20 mg capsule,delayed release(DR/EC) 20 mg PO BID@07,19 Qty: 60 RF: 0 Flomax 0.4 mg capsule 0.4 mg PO DAILY@1900 Qty: 30 RF: 0 cyclobenzaprine 10 mg tablet 10 mg PO TID@07,12,19 90 Days Qty: 90 RF: 0 All Day Allergy (cetirizine) 10 mg capsule 10 mg PO DAILY@0700 RF: 0 Discharge Orders: Discharge ED (Routine); Ordered 02/07/21 Ordered By: Kelly Tsang Referrals: Tatyana Arreaga DO [Primary Care Provider] - Patient Instructions: Opioid Safety Activity Restrictions/Additional Instructions: [facility] is committed to fighting the nationwide opiate epidemic. We are providing ALL patients with information regarding opiate safety. If you received opiate pain medication during your stay or if you received a prescription for opiate pain medication-please review this handout. If not, you may disregard. Thank you. As we discussed no weightbearing on the extremity and told otherwise by orthopedics. You should hear from case management tomorrow regarding appointment date and time. Ice the extremity and elevate as much as possible to help with swelling. Coding Level of Care Code ED Shader And Toner for Chg Fwd Exam Expanded Problem Focused
--- NOTE | 2021-02-07 11:23 | XRR_ITS ---
PROCEDURE INFORMATION: Exam: XR Right Ankle Exam date and time: 02/07/2021 11:23 AM Age: 50 years old Clinical indication: Injury or trauma; Fall; Blunt trauma; Ankle; Right; Additional info: Trauma/injury TECHNIQUE: Imaging protocol: XR Right ankle. Views: 3 or more views. COMPARISON: No relevant prior studies available. FINDINGS: Bones/joints: There is an acute bimalleolar fracture seen with comminuted transverse mildly displaced fracture of the distal fibula and longitudinal mildly displaced fracture of the medial malleolus. Soft tissues: Soft tissue edema is seen in the anterior, and lateral aspect of the ankle XR/XR ankle RT min 3V* [id number] IMPRESSION: 1. Acute bimalleolar fracture 2. Soft tissue effusion anterior l and lateral ankle
[2021-02-07 11:30] VITALS: BP 156/65; PULSE 105; RESP 26; O2SAT 98
[2021-02-07] MEDS: morphine 4 mg/mL SDV 1 mL IM (11:31)
[2021-02-07] MEDS: HYDROmorphone 1 mg/mL INJ 1 mL 0.5 MG SUBCUT (12:10)
[2021-02-07] MEDS: ondansetron 2 mg/ML SDV 2 mL 4 MG IM (12:30)
--- NOTE | 2021-02-07 22:45 | DCPLANNER ---
environmental programs manager had message to schedule a follow up appointment for patient with ortho. environmental programs manager emailed patients information to the Nathalie at the ortho clinic. Patients information will be printed and reviewed. Clinic will call patient with appointment information.
--- NOTE | 2021-02-11 15:04 | DCPLANNER ---
Patient had a follow up appointment scheduled for 02.09.21 with ortho - patient did attend appointment.
== END 2021-02-07 12:47 | disposition home or self-care (01) ==
PROVIDERS: Emergency Provider Physician Assistant; PCP Family Medicine
DX: S82.841A Displaced bimalleolar fracture of right lower leg, initial encounter for closed fracture (principal); E11.9 Type 2 diabetes mellitus without complications; G35 Multiple sclerosis; X58.XXXA Exposure to other specified factors, initial encounter
CPT/HCPCS: 73610; 96372; 99283; E0114; J1170; J2270; J2405

== ENCOUNTER → 2021-02-09 09:49 | Outpatient (BNVA) | payer MEDICARE, MEDICAID, SELFPAY | PROVIDERS: PCP Family Medicine; Referring Provider Physician Assistant; Visit Provider Podiatrist Foot & Ankle Surgery | DX: S82.841A Displaced bimalleolar fracture of right lower leg, initial encounter for closed fracture (principal); X58.XXXA Exposure to other specified factors, initial encounter | CPT/HCPCS: 87635 ==

== ENCOUNTER 2021-02-16 05:24 | Day surgery (SDC) | payer MEDICARE, MEDICAID, SELFPAY ==
[2021-02-15 16:00] VITALS: BMI 25.0
--- NOTE | 2021-02-16 | SCC_ITS ---
Procedure Done: Open reduction internal fixation right bimalleolar fracture CPT code 54401 28 seconds of fluoroscopic guidance, for a cumulative dose of 0.5 mGy, was provided to Dr. Hurtado by the radiology department. C-arm images of the RIGHT ankle were saved for the patient's permanent record. [facility] HOSPITALRoseanne
[2021-02-16 06:00] VITALS: BP 126/75; PULSE 82; RESP 18; TEMP 36.2; O2SAT 97
[2021-02-16 06:32] LABS: Glucose Point of Care 97 mg/dL (70-110)
--- NOTE | 2021-02-16 06:32 | W.PM.OPSUD ---
Surgery/Procedure H&P Update DATE OF PROCEDURE: February 16, 2021 DATE H&P PERFORMED: 02/09/21 H&P UPDATE INFORMATION: I have reviewed H&P completed within last 30 days, I have examined patient prior to procedure, No changes to prior documentation and H&P is in [facility] EMR on date indicated PREOP DIAGNOSIS: Right malleolar fracture PLANNED PROCEDURE: Operation Date: 02/16/21 07:00 Proposed Procedures p ORIF right bimalleolar Ankle / [id number](Right) - Keanu Hurtado DPM
--- NOTE | 2021-02-16 06:33 | P.OP_ITS ---
Operative Report Date of procedure: February 16, 2021 Pre-op Diagnosis: Right malleolar fracture Post-op diagnosis: same Post-op Findings: Same Procedure Done: Open reduction internal fixation right bimalleolar fracture CPT code 34250 Implants: [place] 4.0 mm partially-threaded cannulated screw by 70 mm, 65 mm and 70 mm. 4-0 nylon Specimens removed/disposition: None Pathology: none sent Surgeon: Keanu Hurtado DPM Dulite Machine Bluer: Mariela Anesthesia: General Estimated blood loss: 5 Tourniquet time: 14 IV fluids: None Urine output: None Complications: None Condition: stable Disposition: PACU Brief History: Sustained a right bimalleolar ankle fracture this was nondisplaced recommended ORIF patient is agreeable. Procedure: Under mild sedation the patient was brought to the operating room and placed on the operating table in supine position. A timeout was performed. Anesthesia was then administered by the anesthesia service. Of note a popliteal block was performed preoperatively. Saphenous nerve block performed by myself utilizing 0.5% Marcaine plain. Well-padded pneumatic tourniquet applied to high calf right lower extremity. Right lower extremity was then scrubbed, prepped and draped utilizing normal aseptic technique. Right lower extremity was examined he waited with an Esmarch bandage and the tourniquet inflated to 250 mmHg. Attention was directed to the lateral malleolus where utilizing fluoroscopic guidance and standard AO technique a 4.0 mm headed partially-threaded cannulated screw by 70 mm was inserted up the medullary canal perpendicular to the fracture site this was a transverse Calvert B. Excellent bony apposition and compression noted with fixation confirmed on all 3 views AP, mortise and lateral. Attention was directed to the medial malleolus where in like fashion a 4.0 millimeter screw x2, 65 mm in length and 70 mm in length were utilized to fixate the medial malleolus perpendicular to the fracture site and purchasing the lateral cortex for additional structural support, confirmed placement of screw to be out of the ankle mortise on the AP and mortise view. Excellent bony apposition and compression noted. Incision sites were flushed with saline solution and closed with 4-0 nylon. Incision sites were then dressed with Adaptic, sterile 4 x 4, Kerlix and well- padded multilayer compressive posterior splint with stirrup. Tourniquet was deflated and a prompt hyperemic response was noted to the distal digits of the right foot. Patient tolerated the procedure and anesthesia well and was transfe rred to the PACU with vital signs stable and vascular status intact. Following a period of postoperative monitoring she will be discharged home is to remain strict nonweightbearing as follow-up instructions on discharge paperwork as well as my phone number to contact me with any questions or concerns.
[2021-02-16] MEDS: sodium chloride 0.9% 1,000 ML 30 ML IV (06:47)
[2021-02-16] MEDS: scopolamine 1.5 Patch 1 PATCH TRANSDERMA (06:58)
--- NOTE | 2021-02-16 07:04 | XR_ITS ---
WS: [id number] Right ankle, 3 views, 02/16/2021 Clinical Data: post op Comparison: Right ankle, 02/07/2021. Findings: Internal fixation of the bimalleolar fracture shows oblique screws in the medial malleolus and a dist al screw in the lateral malleolus. There is a fiberglass cast about the ankle. XR/XR ankle RT min 3V* [id number] Impression: Internal fixation of bimalleolar fracture.
--- NOTE | 2021-02-16 07:05 | ANES.PROC ---
Anesthesia Procedures Procedure/Date: 02/16/21 Nerve Block ^: Nerve Block 1: Main Anesthesia: general anesthesia (TIVA (Patient has MH)) Time Out Performed: Yes Consent: requested by attending/covering physician, from patient, from other, risks and benefits reviewed (Patient informed she is at higher risk of Peripheral nerve damage d/t preexisting MS and Neuropathy - wishes to proceed) and patient agrees to proceed Nerve block location: popliteal (R) Nerve block position: supine Anesthetic Used: ropivicaine 0.5% Amount of anesthesia used (mL): 30 Nerve Stimulator Used?: No Interscalene/Femoral BLK: 4 stimuplex 21 g needle used for position and inplane approach, visualize local anesthetic spread and no vascular puncture identified Injection: neg aspiration of heme Patient Tolerated Procedure: well and no complications Complications: none
[2021-02-16 08:04] VITALS: BP 107/72; PULSE 71; RESP 14; TEMP 36.2; O2SAT 96
[2021-02-16 08:05] VITALS: BP 107/72; PULSE 72; RESP 20; O2SAT 96
[2021-02-16 08:10] VITALS: BP 114/76; PULSE 76; RESP 13; O2SAT 95
[2021-02-16 08:15] VITALS: BP 136/98; PULSE 70; RESP 18; TEMP 36.4; O2SAT 94
[2021-02-16 08:35] VITALS: BP 124/79; PULSE 72; RESP 18; TEMP 36.4; O2SAT 96
--- NOTE | 2021-02-16 08:42 | ANES.PREANE2 ---
Pre-Anesthetic Assessment Pre-Anesthetic Assessment: Height/Weight: Height 1.73 m Weight 74.843 kg Temp Pulse Resp BP Pulse Ox 97.6 F 72 18 124/79 96 02/16/21 08:35 02/16/21 08:35 02/16/21 08:35 02/16/21 08:35 02/16/21 08:35 Preop Diagnosis: Right malleolar fracture Proposed Procedure: Operation Date: 02/16/21 07:00 Proposed Procedures p ORIF right bimalleolar Ankle / [id number](Right) - YANELY MillerM Was Beta Yumiko taken within 24 hours: N/A Was Clonidine taken within 24 hours: N/A Last intake: Intake Last Liquid Date 02/15/21 Last Liquid Time 22:00 Last Solid Date 02/15/21 Last Solid Time 21:00 Social: Social History: No alcohol and No tobacco Exam: Pre-Anes Outpt Exam: alert, oriented x 3, clear to auscultation bilaterally and regular rate & rhythm Airway: Submandibular: WNL Cervical ROM: WNL MP: 2 Dentition: False Pulmonary: Pulmonary: COPD GI: GI: GERD Metabolic: Metabolic: Hyperlipidemia Neuropsych: Neuropsych: Neuropathy Comments: MS Anesthetic Plan: ASA status: 3 Anesthesia: General and Regional (specify below) Other: TIVA with popliteal blk Risk of > 500 ml blood loss (7ml/kg in children): No Meds/Allergies Current Medications: Current Medications Generic Name Dose Route Start Last Admin Trade Name Freq PRN Reason Stop Dose Admin Sodium Chloride 1,000 mls @ 30 ml s/hr 02/16/21 06:00 02/16/21 06:47 Sodium Chloride 0.9% IV 02/17/21 05:59 30 mls/hr .Q24H [place] Administration PFSH Anesthesia PFSH: Medical History (Updated 02/15/21 @ 00:01 by ) Cervical disc disease Cervical disc disorder with myelopathy of mid-cervical region Chronic migraine without aura, intractable, with status migrainosus Chronic neck pain with abnormal neurologic examination DM II (diabetes mellitus, type II), controlled GERD (gastroesophageal reflux disease) Incomplete bladder emptying Malignant hyperthermia Mild cognitive impairment Multiple sclerosis Multiple sclerosis Neurogenic bladder Recurrent UTI Surgical History H/O carpal tunnel repair H/O rotator cuff surgery H/O tubal ligation H/O: hysterectomy History of appendectomy History of cholecystectomy History of tonsillectomy and adenoidectomy Family History Other CAD (coronary artery disease) Diabetes Hypertension Multiple sclerosis Stroke Social History Alcohol intake: never Lives independently: Yes Marital status: / Current occupational status: disabled History of recent travel: No Female Reproductive History: Para: 3 Spontaneous abortions: Yes Data Anesthesia Other Labs: Laboratory Results - last 48 hr 02/16/21 06:25 POC Glucose 97 Cardiac Studies: No Data to Display
--- NOTE | 2021-02-16 08:49 | ANE.PACU2 ---
Inpatient post-anesthesia follow up: Airway intact: Yes Vital signs: Temperature 97.6 F Pulse Rate 72 Respiratory Rate 18 Blood Pressure 124/79 Pulse Oximetry 96 Oxygen Delivery Me thod Room Air Oxygen Flow Rate Fraction of Inspir ed Oxygen Hydration adequate: Yes Nausea and vomiting: No Pain level: 1 Mental status: Baseline
[2021-02-16] MEDS: oxyCODONE-APAP 10-325 mg Tablet 1 TAB PO (08:50)
== END 2021-02-16 09:00 | disposition home or self-care (01) ==
PROVIDERS: PCP Family Medicine; Visit Provider Podiatrist Foot & Ankle Surgery
PROC: (CPT 27814; principal; 2021-02-16 07:00)
DX: S82.841A Displaced bimalleolar fracture of right lower leg, initial encounter for closed fracture (principal); X58.XXXA Exposure to other specified factors, initial encounter; J44.9 Chronic obstructive pulmonary disease, unspecified; K21.9 Gastro-esophageal reflux disease without esophagitis; E78.5 Hyperlipidemia, unspecified; E11.40 Type 2 diabetes mellitus with diabetic neuropathy, unspecified
CPT/HCPCS: 27814; 36416; 64450; 73610; 76000; 76942; 82962; C1713; J0690; J1100; J1170; J1885; J2250; J2370; J2405; J2704; J2795; J3490; J7030

== ENCOUNTER → 2021-02-24 14:08 | Outpatient (BNVA) | payer MEDICARE, MEDICAID, SELFPAY | PROVIDERS: PCP Family Medicine; Visit Provider Podiatrist Foot & Ankle Surgery | DX: Z98.890 Other specified postprocedural states (principal) | CPT/HCPCS: 73610 ==

== ENCOUNTER 2021-02-24 15:20 | Outpatient (CLI) | payer MEDICARE, MEDICAID, SELFPAY | END 2021-02-24 15:21 | disposition home or self-care (01) | LOC: SPT 15:21 | PROVIDERS: PCP Family Medicine; Visit Provider Podiatrist Foot & Ankle Surgery | DX: Z47.89 Encounter for other orthopedic aftercare (principal) | CPT/HCPCS: 97760; L4361 ==

== ENCOUNTER → 2021-03-17 10:06 | Outpatient (BNVA) | payer MEDICARE, MEDICAID, SELFPAY | PROVIDERS: PCP Family Medicine; Visit Provider Podiatrist Foot & Ankle Surgery | DX: Z98.890 Other specified postprocedural states (principal) | CPT/HCPCS: 73610 ==

== ENCOUNTER → 2021-03-31 10:48 | Outpatient (BNVA) | payer MEDICARE, MEDICAID, SELFPAY | PROVIDERS: PCP Family Medicine; Visit Provider Podiatrist Foot & Ankle Surgery | DX: Z98.890 Other specified postprocedural states (principal); Z47.89 Encounter for other orthopedic aftercare | CPT/HCPCS: 73610; 97760; L1902 ==

== ENCOUNTER 2021-03-31 11:47 | Outpatient (CLI) | payer MEDICARE, MEDICAID, SELFPAY | END 2021-03-31 11:48 | disposition home or self-care (01) | LOC: SPT 11:48 | PROVIDERS: PCP Family Medicine; Visit Provider Podiatrist Foot & Ankle Surgery | DX: Z47.89 Encounter for other orthopedic aftercare (principal) | CPT/HCPCS: 97760; L1902 ==

== ENCOUNTER → 2021-04-22 10:53 | Outpatient (BNVA) | payer MEDICARE, MEDICAID, SELFPAY | PROVIDERS: PCP Family Medicine; Visit Provider Specialist | DX: G43.711 Chronic migraine without aura, intractable, with status migrainosus (principal); G62.9 Polyneuropathy, unspecified; G35 Multiple sclerosis; Z87.891 Personal history of nicotine dependence | CPT/HCPCS: 64615; 99214 ==

== ENCOUNTER → 2021-07-27 10:52 | Outpatient (BNVA) | payer MEDICARE, MEDICAID, SELFPAY | PROVIDERS: PCP Family Medicine; Visit Provider Family Medicine | DX: E78.5 Hyperlipidemia, unspecified (principal); E11.9 Type 2 diabetes mellitus without complications; B02.29 Other postherpetic nervous system involvement | CPT/HCPCS: 80053; 80061; 83036; 85025 ==

== ENCOUNTER 2021-08-02 11:03 | Outpatient (CLI) | payer MEDICARE, MEDICAID, SELFPAY ==
[2021-08-02 11:18] VITALS: BP 129/82; PULSE 74; RESP 18; TEMP 36.4; O2SAT 97
[2021-08-02] MEDS: sodium chloride 0.9% 250 ML 50 ML IV (11:46)
[2021-08-02] MEDS: acetaminophen 500 mg Tablet 1000 MG PO (11:47)
[2021-08-02] MEDS: diphenhydrAMINE 50 mg/mL SDV 1mL 25 MG IVP (11:49)
[2021-08-02 12:44] VITALS: BP 105/64; PULSE 57; RESP 18; TEMP 37.2; O2SAT 98
[2021-08-02 13:35] VITALS: BP 116/66; PULSE 66; RESP 18; TEMP 36.3; O2SAT 97
[2021-08-02 14:56] VITALS: BP 124/75; PULSE 60; RESP 18; TEMP 36.4; O2SAT 98
== END 2021-08-03 00:02 | disposition home or self-care (01) ==
PROVIDERS: PCP Family Medicine; Referring Provider Specialist; Visit Provider Specialist
DX: G35 Multiple sclerosis (principal)
CPT/HCPCS: 96365; 96366; 96375; J1200; J2350; J2930; J7040; J7050

== ENCOUNTER → 2021-12-16 10:35 | Outpatient (BNVA) | payer MEDICARE, MEDICAID, SELFPAY | PROVIDERS: PCP Family Medicine; Visit Provider Physician Assistant | DX: M47.22 Other spondylosis with radiculopathy, cervical region (principal); R20.2 Paresthesia of skin | CPT/HCPCS: 72040; 99203; 99204 ==

== ENCOUNTER → 2021-12-30 08:05 | Outpatient (BNVA) | payer MEDICARE, MEDICAID, SELFPAY | PROVIDERS: PCP Family Medicine; Visit Provider Podiatrist Foot & Ankle Surgery | DX: L60.3 Nail dystrophy (principal) | CPT/HCPCS: 11750 ==

== ENCOUNTER 2022-01-03 06:00 | Outpatient (RCR) | payer MEDICARE, MEDICAID, SELFPAY | END 2022-01-19 23:59 | disposition home or self-care (01) | LOC: MPT 06:00 | PROVIDERS: PCP Family Medicine; Visit Provider Physician Assistant | DX: M54.2 Cervicalgia (principal) | CPT/HCPCS: 97162 ==

== ENCOUNTER → 2022-01-11 10:58 | Outpatient (BNVA) | payer MEDICARE, MEDICAID, SELFPAY | PROVIDERS: PCP Family Medicine; Visit Provider Podiatrist Foot & Ankle Surgery | DX: L60.3 Nail dystrophy (principal) | CPT/HCPCS: 99213 ==

== ENCOUNTER 2022-01-27 11:17 | Outpatient (CLI) | payer MEDICARE, MEDICAID, SELFPAY ==
--- NOTE | 2022-01-27 11:00 | MR_ITS ---
WS: [id number] MRI CERVICAL SPINE NONCONTRAST TECHNIQUE: Sagittal T1, T2 and STIR imaging. Axial T2, gradient, and fiesta imaging. CLINICAL INFORMATION: pain COMPARISON: MRI September 28, 2020 FINDINGS: Normal cervical alignment. No high-grade central canal stenosis. Eccentric demyelinating plaques in t he cervical cord likely chronic at RIGHT C3-C4, RIGHT C4-C5, and RIGHT C5-C6. These are better visual ized today due to motion on prior examination but appear stable. C2-C3: Normal. C3-C4: Moderate LEFT facet arthropathy. Mild LEFT bony foraminal narrowing. Spinal canal and foramen are patent. C4-C5: Shallow central disc bulging. Slight effacement of ventral thecal sac. Moderate facet arthropa thy. Mild LEFT greater than RIGHT bony foraminal narrowing. C5-C6: Mild disc bulging with tiny annular fissure. Slight effacement of ventral thecal sac. Moderate facet arthropathy. Foramen are patent. C6-C7: Mild disc bulging with slight effacement of ventral thecal sac. Mild LEFT and no significant R IGHT foraminal narrowing. Spinal canal is patent. C7-T1: Normal. Central disc protrusion upper thoracic spine at T3-T4 with slight contact of the thoracic cord. Mild central canal stenosis. This is only included on the sagittal imaging. Visualized brain stem structures: Normal. Prevertebral soft tissues: Normal. MR/MR cervical spin wo con* [id number] IMPRESSION: 1. Normal cervical alignment. No high-grade central canal stenosis. 2. A few chronic demyelinating plaques within the cervical cord at RIGHT C3-C4 , C5-C6 appears unchanged from previous. This can be followed up with gadoliniu m to assess for active demyelinating disease 3. No significant cord atrophy. 4. Disc bulging worse at C4-C5 and C5-C6 with slight effacement of ventral the lela sac. 5. Moderate LEFT facet arthropathy C3-C4 and mild LEFT bony foraminal narrowin g. 6. Moderate facet arthropathy C4-C5 and C5-C6. 7. Small central disc protrusion upper thoracic spine at T3-T4 with slight ind entation on the thoracic cord and mild central canal stenosis unchanged from pr evious. 8. Disc bulging at C4-C5 and C5-C6 appears slightly progressed compared to Jul. Tiny annular fissure at C5-C6.
== END 2022-01-27 11:18 | disposition home or self-care (01) ==
PROVIDERS: PCP Family Medicine; Visit Provider Physician Assistant
DX: M47.892 Other spondylosis, cervical region (principal); M50.321 Other cervical disc degeneration at C4-C5 level; M48.02 Spinal stenosis, cervical region
CPT/HCPCS: 72141; 99213

== ENCOUNTER 2022-01-31 09:03 | Outpatient (CLI) | payer MEDICARE, MEDICAID, SELFPAY ==
[2022-01-31 09:10] VITALS: BP 117/79; PULSE 91; RESP 18; TEMP 36.2; O2SAT 98
[2022-01-31 10:48] VITALS: BP 138/83; PULSE 67; RESP 18; TEMP 36.1; O2SAT 95
[2022-01-31] MEDS: sodium chloride 0.9% 250 ML 50 ML IV (10:59)
[2022-01-31] MEDS: acetaminophen 500 mg Tablet 1000 MG PO (11:00)
[2022-01-31] MEDS: diphenhydrAMINE 50 mg/mL SDV 1mL 25 MG IVP (11:01)
[2022-01-31 11:28] VITALS: BP 120/78; PULSE 64; RESP 18; TEMP 36.2; O2SAT 97
[2022-01-31 12:50] VITALS: BP 124/79; PULSE 79; RESP 18; TEMP 36.7; O2SAT 96
[2022-01-31 13:48] VITALS: BP 137/79; PULSE 83; RESP 18; TEMP 36.2; O2SAT 96
== END 2022-01-31 09:04 | disposition home or self-care (01) ==
LOC: ONCMED 09:05
PROVIDERS: PCP Family Medicine; Visit Provider Specialist
DX: G35 Multiple sclerosis (principal); Z79.899 Other long term (current) drug therapy
CPT/HCPCS: 96365; 96366; 96367; 96375; A4222; J1200; J2350; J2930; J7040; J7050

== ENCOUNTER 2022-02-01 08:42 | Outpatient (CLI) | payer MEDICARE, MEDICAID, SELFPAY ==
[2022-02-01 08:58] VITALS: BP 120/70; PULSE 84; RESP 18; TEMP 36.6; O2SAT 98
--- NOTE | 2022-02-01 09:09 | PC.NURSE ---
Pt arrived at the infusion suite with IV access in Left wrist from infusion on 01/31/22. She states that there was a burning sensation with the IV, and she experienced problems with it throughout the night. The IV was removed, and new access in Right AC space was obtained for today's infusion. Pt tolerated procedure well. dh
[2022-02-01 10:40] VITALS: BP 126/80; PULSE 67; RESP 18; TEMP 36.4; O2SAT 98
== END 2022-02-01 08:43 | disposition home or self-care (01) ==
PROVIDERS: PCP Family Medicine; Visit Provider Specialist
DX: G35 Multiple sclerosis (principal)
CPT/HCPCS: 96365; J2930; J7050

== ENCOUNTER 2022-02-02 09:04 | Outpatient (CLI) | payer MEDICARE, MEDICAID, SELFPAY ==
[2022-02-02 09:34] VITALS: BP 145/84; PULSE 56; RESP 18; TEMP 36.6; O2SAT 99
[2022-02-02 11:22] VITALS: BP 148/82; PULSE 65; RESP 18; TEMP 36.1; O2SAT 98
== END 2022-02-02 09:05 | disposition home or self-care (01) ==
LOC: ONCMED 09:05
PROVIDERS: PCP Family Medicine; Visit Provider Specialist
DX: G35 Multiple sclerosis (principal)
CPT/HCPCS: 96365; J2930; J7050

== ENCOUNTER 2022-02-03 14:02 | Outpatient (CLI) | payer MEDICARE, MEDICAID, SELFPAY ==
[2022-02-03 15:23] VITALS: BP 138/79; PULSE 67; RESP 18; TEMP 37.4; O2SAT 99
[2022-02-03 16:10] VITALS: BP 138/79; PULSE 67; RESP 18; TEMP 37.2
== END 2022-02-03 14:03 | disposition home or self-care (01) ==
LOC: ONCMED 14:03
PROVIDERS: PCP Family Medicine; Visit Provider Specialist
DX: G35 Multiple sclerosis (principal)
CPT/HCPCS: 96365; J2930; J7050

== ENCOUNTER → 2022-02-07 13:11 | Outpatient (BNVA) | payer MEDICARE, MEDICAID, SELFPAY | PROVIDERS: PCP Family Medicine; Referring Provider Physician Assistant; Visit Provider Specialist | DX: R20.2 Paresthesia of skin (principal); M54.2 Cervicalgia | CPT/HCPCS: 95910; 95912 ==

== ENCOUNTER → 2022-02-25 10:48 | Outpatient (BNVA) | payer MEDICARE, MEDICAID, SELFPAY | PROVIDERS: PCP Family Medicine; Visit Provider Family Medicine | DX: E78.5 Hyperlipidemia, unspecified (principal); Z13.6 Encounter for screening for cardiovascular disorders; J30.89 Other allergic rhinitis; F41.9 Anxiety disorder, unspecified; F33.1 Major depressive disorder, recurrent, moderate; K21.9 Gastro-esophageal reflux disease without esophagitis; F51.04 Psychophysiologic insomnia; H65.92 Unspecified nonsuppurative otitis media, left ear | CPT/HCPCS: 80053 ==

== ENCOUNTER 2022-03-14 08:12 | Outpatient (CLI) | payer MEDICARE, MEDICAID, SELFPAY ==
--- NOTE | 2022-03-14 09:19 | MM_ITS ---
WS: [id number] BILATERAL SCREENING DIGITAL TOMOSYNTHESIS MAMMOGRAM WITH CAD HISTORY: screening mammogram COMPARISON: 10/09/2019 and 03/28/2018 Bilateral CC and MLO views with tomosynthesis and synthetic mammography submitted. Computer aided det ection analyzed. Breast composition: There are scattered areas of fibroglandular density. No suspicious masses, microc alcifications or architectural distortion. Bilateral benign calcifications. MM/[place] [id number] IMPRESSION: BI-RADS: 2-Benign FOLLOW UP: 1 Year Follow-up
== END 2022-03-14 08:13 | disposition home or self-care (01) ==
PROVIDERS: PCP Family Medicine; Visit Provider Family Medicine
DX: Z12.31 Encounter for screening mammogram for malignant neoplasm of breast (principal)
CPT/HCPCS: 77063; 77067

== ENCOUNTER 2022-03-14 08:13 | Outpatient (CLI) | payer MEDICARE, MEDICAID, SELFPAY ==
--- NOTE | 2022-03-14 08:00 | MR_ITS ---
WS: [id number] MRI cervical spine with contrast. HISTORY: Neck pain with bilateral arm tingling and finger numbness for 6 months. History of MS. Chapito nt returns for postcontrast imaging as recommended on a study of 01/27/2021. Pre and post T1 contrast sequences are performed. MultiHance 16 mL IV. COMPARISON: 01/27/2022. The alignment remains unchanged. No cord atrophy or enlargement. No active demyelinating plaques are identified. No soft tissue masses or abnormal enhancement. MR/MR cervical spine w con [id number] IMPRESSION: Additional postcontrast imaging of the cervical spine demonstrates no active ar eas of demyelination.
[2022-03-14] MEDS: gadobenate dimeglumine 20 mL vial IV (08:59)
== END 2022-03-14 08:14 | disposition home or self-care (01) ==
PROVIDERS: PCP Family Medicine; Visit Provider Physician Assistant
DX: M47.22 Other spondylosis with radiculopathy, cervical region (principal)
CPT/HCPCS: 72142; A9577

== ENCOUNTER 2022-03-18 09:30 | Outpatient (RCR) | payer MEDICARE, MEDICAID, SELFPAY ==
[2022-03-14 12:00] VITALS: BP 133/70; PULSE 77; RESP 18; TEMP 36.2; O2SAT 97
[2022-03-15 09:59] VITALS: BP 108/83; PULSE 103; RESP 18; TEMP 36.8; O2SAT 98
[2022-03-16 10:30] VITALS: BP 121/75; PULSE 97; RESP 18; TEMP 36.4; O2SAT 97
[2022-03-17 09:06] VITALS: BP 142/72; PULSE 79; RESP 18; TEMP 36.5; O2SAT 98
[2022-03-18 09:11] VITALS: BP 143/71; PULSE 86; RESP 18; TEMP 36.5; O2SAT 98
== END 2022-03-22 23:59 | disposition home or self-care (01) ==
LOC: GILAB 09:30
PROVIDERS: PCP Family Medicine; Visit Provider Specialist
DX: G35 Multiple sclerosis (principal)
CPT/HCPCS: 96365; J2930; J7050

== ENCOUNTER → 2022-03-29 13:30 | Outpatient (BNVA) | payer MEDICARE, MEDICAID, SELFPAY | PROVIDERS: PCP Family Medicine; Visit Provider Surgery | DX: Z01.818 Encounter for other preprocedural examination (principal) | CPT/HCPCS: 99024; 99213 ==

== ENCOUNTER → 2022-04-07 09:31 | Outpatient (BNVA) | payer MEDICARE, MEDICAID, SELFPAY | PROVIDERS: PCP Family Medicine; Visit Provider Specialist | DX: G43.711 Chronic migraine without aura, intractable, with status migrainosus (principal); G35 Multiple sclerosis | CPT/HCPCS: 64615; 99214; J0585 ==

== ENCOUNTER 2022-06-30 10:47 | Emergency (ER) | payer MEDICARE, MEDICAID, SELFPAY ==
[2022-06-30 10:58] VITALS: BP 172/78; PULSE 80; RESP 18; TEMP 36.6; O2SAT 99
--- NOTE | 2022-06-30 11:44 | XRR_ITS ---
PROCEDURE INFORMATION: Exam: XR Left Shoulder Exam date and time: 06/30/2022 11:51 AM Age: 51 years old Clinical indication: Blunt trauma. Left; Injury details: Fall with left shoulder pain. Lack of shoulder mobility TECHNIQUE: Imaging protocol: Radiologic exam of the left shoulder. Views: 2 or more views. COMPARISON: CR XR chest 1V portable [id number] 11/05/2019 8:41 AM FINDINGS: Tubes, catheters and devices: Left port with tip in the SVC. Bones/joints: Mild primary osteoarthritis at the glenohumeral and acromioclavicular joints. No fracture, dislocation or subluxation. No periosteal reaction or supsicious bone lesion. Soft tissues: No significant soft tissue swelling. XR/XR shoulder LT min 2V* [id number] IMPRESSION: 1. Mild primary osteoarthritis. 2. No acute fracture is seen.
--- NOTE | 2022-06-30 12:24 | ED_ITS ---
HPI - Fall General: Chief Complaint: Fall Stated Complaint: shoulder pain Time Seen by Provider: 06/30/22 11:44 Source: patient Mode of arrival: ambulatory History of Present Illness: 51-year-old female who presents to the emergency room with complaints of left shoulder pain. Pain radiates from the shoulder down into the proximal portion of the upper arm she had fallen recently has difficult time with abduction and extension of that arm no pain at the elbow or wrist. No other injury. She did not strike her head she did not lose consciousness. She was seen by Dr. Simon today and directed to the emergency room out of concern for a possible traumatic rotator cuff tear MD complaint: fall Fall from: standing Place fall occurred: home Loss of consciousness: None Prolonged down time: no Symptoms prior to fall: none Severity: moderate Associated symptoms-after fall: Reports neck pain; Denies abdominal pain, chest pain, confusion, difficulty walking, headache(s), hematuria, lightheadedness, numbness, short of breath, vertigo or weakness Review of Systems Const: Denies: fever(s), chills or body aches Card: Denies: chest pain or lightheadedness Resp: Denies: dyspnea, productive cough or non-productive cough GI: Denies: abdominal pain : Denies: hematuria Musc: Reports: neck pain and joint pain (Left shoulder) Skin/Breast: Denies: rash or pruritus Neuro: Denies: headache(s), difficulty walking, vertigo or confusion PFS ED PFSH: Medical History Cervical disc disease Cervical disc disorder with myelopathy of mid-cervical region Chronic migraine without aura, intractable, with status migrainosus Chronic neck pain with abnormal neurologic examination DM II (diabetes mellitus, type II), controlled GERD (gastroesophageal reflux disease) Herpes zoster dermatitis Incomplete bladder emptying Malignant hyperthermia Mild cognitive impairment Multiple sclerosis Multiple sclerosis Neurogenic bladder Recurrent UTI Surgical History H/O carpal tunnel repair H/O rotator cuff surgery H/O tubal ligation H/O: hysterectomy History of appendectomy History of cholecystectomy History of tonsillectomy and adenoidectomy Family History Other CAD (coronary artery disease) Diabetes Hypertension Multiple sclerosis Stroke Social History Smoking and tobacco status: current every day smoker cigarettes Packs smoked per day: 0.5 Alcohol intake: never Substance/Drug Use: never Lives independently: Yes Marital status: / Current occupational status: disabled Female Reproductive History: Para: 3 Spontaneous abortions: Yes Physical Exam Const: COMMON NORMALS: no acute distress GENERAL APPEARANCE: cooperative and comfortable ORIENTATION/CONSCIOUSNESS: Yes awake, Yes oriented to person, Yes oriented to place and Yes oriented to time HENMT: COMMON NORMALS: normocephalic, atraumatic and hearing grossly normal bilaterally HEAD & SCALP: normocephalic and atraumatic Resp: COMMON NORMALS: normal respiratory effort, No retractions, No use of accessory muscles and clear to auscultation bilaterally AUSCULTATION: clear t o auscultation bilaterally Cardio: COMMON NORMALS: regular rate, regular rhythm and No murmurs present (Cardio) RATE: regular rate RHYTHM: regular rhythm Extremity: OTHER: Left shoulder pain. 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 She has discomfort with even passive range of motion attempts for abduction or extension. No rash or skin abnormality noted there is no obvious deformity. Palpation of the proximal humerus shows no pain or crepitus Neuro: SENSORIUM/ORIENTATION: Yes oriented to person, Yes oriented to place and Yes oriented to time Skin: COMMON NORMALS: no rashes or lesions noted GENERAL SKIN EXAM: no rashes or lesions noted Course Vital Signs: Vital signs: Vital Signs Temperature 97.8 F 06/30/22 10:58 Pulse Rate 80 06/30/22 10:58 Respiratory Rate 18 06/30/22 10:58 Blood Pressure 172/78 06/30/22 10:58 Pulse Oximetry 99 06/30/22 10:58 Oxygen Delivery Me thod Room Air 06/30/22 10:58 MDM - Fall Medical Decision Making Suspect she may have a traumatic left rotator cuff tear we will set her up for an MRI of the left shoulder and referral to orthopedics. Plain film today was unremarkable. Medical Records I reviewed the patient's medical records. Lab Data I reviewed the patient's lab results. Radiology Impressions Shoulder X-Ray 06/30/22 11:44 IMPRESSION: 1. Mild primary osteoarthritis. 2. No acute fracture is seen. Discharge Plan Discharge Patient Disposition: Home Clinical Impression: Acute shoulder pain Condition: Stable Prescriptions: New tramadol 50 mg tablet 50 mg PO Q6H PRN (Reason: pain) Qty: 20 0RF No Action Botox 100 unit recon soln 155 unit IM .q12w Rx Instructions: every 12 weeks. (DME) nebulizer See Rx Instructions .Route .MEDSUPPLY Qty: 1 0RF Rx Instructions: Tubing and supplies (DME) Walker See Rx Instructions .Route .MEDSUPPLY Qty: 1 0RF Rx Instructions: As directed By HOME tramadol 50 mg tablet 50 mg PO Q4H PRN (Reason: pain) 7 Days Qty: 42 0RF lidocaine [Lidoderm] 5 % adhesive patch,medicated 1 patch topical DAILY Qty: 30 0RF Rx Instructions: leave on most painful area for up to 12 hrs nystatin 100,000 unit/mL suspension 1 ml PO DAILY Qty: 60 0RF Rx Instructions: swish and swallow daily for 7 days. Botox 100 unit recon soln 155 unit SUBCUT ONCE Qty: 2 0RF amoxicillin-pot clavulanate 875-125 mg tablet 1 tab PO BID Qty: 20 0RF (DME) catheter 12 Fr misc See Rx Instructions .ROUTE .MEDSUPPLY Qty: 100 2RF Rx Instructions: three times daily gabapentin 300 mg capsule See Rx Instructions PO TID Qty: 120 0RF Rx Instructions: Take 1 in Am, 1 at noon, and two at bedtime. albuterol sulfate 2.5 mg /3 mL (0.083 %) solution for nebulization 2.5 mg INHALATION Q4H PRN (Reason: shortness of breath or wheezing) 90 Days Qty: 180 1RF Flomax 0.4 mg capsule 0.4 mg PO DAILY@1900 90 Days Qty: 90 1RF Linzess 72 mcg capsule 72 mcg PO QAM Qty: 90 1RF duloxetine 60 mg capsule,delayed release(DR/EC) 60 mg PO DAILY Qty: 90 1RF fenofibrate nanocrystallized 145 mg tablet 145 mg PO DAILY@0700 90 Days Qty: 90 1RF Flonase Allergy Relief 50 mcg/actuation spray,suspension 1 spray intranasal BID@0700,1900 90 Days Qty: 54.6 3RF Rx Instructions: administer into each nostril lovastatin 40 mg tablet 40 mg PO DAILY@0700 90 Days Qty: 90 1RF montelukast [Singulair] 10 mg tablet 10 mg PO DAILY Qty: 90 3RF omeprazole 40 mg capsule,delayed release(DR/EC) 40 mg PO BID@07,19 90 Days Qty: 180 1RF zonisamide 100 mg capsule See Rx Instructions .ROUTE .COMPLEX Qty: 120 0RF Dose Instruction: TAKE 4 CAPSULES BY MOUTH EVERY DAY Rx Instructions: TAKE 4 CAPSULES BY MOUTH EVERY DAY mirtazapine 45 mg tablet See Rx Instructions .ROUTE .COMPLEX Qty: 90 1RF Dose Instruction: Take 1 tablet by mouth once daily Rx Instructions: Take 1 tablet by mouth once daily albuterol sulfate [Ventolin HFA] 90 mcg/actuation HFA aerosol inhaler 2 puff INHALATION Q6H PRN (Reason: shortness of breath or wheezing) 90 Days Qty: 27 1RF buspirone 5 mg tablet 5 mg PO BID 90 Days Qty: 180 1RF cyclobenzaprine 10 mg tablet 10 mg PO TID@07,12,19 90 Days Qty: 270 1RF Ocrevus 30 mg/mL solution See Rx Instructions .ROUTE .COMPLEX Qty: 20 0RF Rx Instructions: mg intravenously, every 6 months. All Day Allergy (cetirizine) 10 mg capsule 10 mg PO DAILY@0700 Discharge Orders: Discharge ED (Routine); Ordered 06/30/22 Ordered By: Juanjo Serrato Referrals: Tatyana Arreaga DO [Primary Care Provider] - Discharge Diet: Usual diet Discharge Activity: Resume usual activity Patient Instructions: Opioid Safety, Pain Management Activity Restrictions/Additional Instructions: You are seen today for left shoulder pain after a fall. Suspect you may have a traumatic rotator cuff tear. Case management make arrangements for you to have an MRI of your left shoulder as well as a follow-up appointment with orthopedics. Use the tramadol you were previously prescribed for pain. 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
--- NOTE | 2022-06-30 15:18 | PC.NURSE ---
Addendum entered by Zakiya Aly 08/05/22 08:45: MRI was rescheduled, ortho appointment cancelled Addendum entered by Zakiya Aly 07/10/22 06:24: Patient has a follow up appointment scheduled for Monday, August 01, 2022 at 2:[address] Ravi at ortho. Addendum entered by Zakiya Aly 07/08/22 11:34: Patient has an MRI scheduled for July at 1:00. Original Note: Patient was seen in the ED on 06/30/22 and referred to Ortho for left shoulder pain. Dr. Serrato also ordered an MRI. MRI ordered and faxed to centralized scheduling. Message sent to Ortho to schedule patient for an appt.
== END 2022-06-30 12:34 | disposition home or self-care (01) ==
PROVIDERS: Emergency Provider Family Medicine; PCP Family Medicine
DX: G43.711 Chronic migraine without aura, intractable, with status migrainosus (principal); M25.512 Pain in left shoulder; G35 Multiple sclerosis; F17.210 Nicotine dependence, cigarettes, uncomplicated; E11.9 Type 2 diabetes mellitus without complications
CPT/HCPCS: 64615; 73030; 99213; 99284; J0585

== ENCOUNTER 2022-08-01 09:02 | Oncology outpatient (recurring) (ONCR) | payer MEDICARE, MEDICAID, SELFPAY ==
[2022-08-01 09:20] VITALS: BP 125/85; PULSE 88; RESP 16; TEMP 36.3; O2SAT 98
[2022-08-01] MEDS: sodium chloride 0.9% 250 ML 75 ML IV (09:33)
[2022-08-01] MEDS: acetaminophen 500 mg Tablet 1000 MG PO (09:33)
[2022-08-01] MEDS: dexamethasone 10 mg/mL INJ 6 MG IVP (09:35)
[2022-08-01] MEDS: diphenhydrAMINE 50 mg/mL SDV 1mL 25 MG IVP (09:43)
[2022-08-01] MEDS: ocrelizumab 600 MG in sodium chloride 0.9% 500 ML 100 MG IV (10:00)
[2022-08-01 10:15] VITALS: BP 111/75; PULSE 83; RESP 16; TEMP 36.3; O2SAT 97
[2022-08-01 10:45] VITALS: BP 125/80; PULSE 76; RESP 16; TEMP 36.6; O2SAT 96
[2022-08-01 12:30] VITALS: BP 113/72; PULSE 77; RESP 16; TEMP 36.3; O2SAT 97
== END 2022-08-19 23:59 | disposition home or self-care (01) ==
PROVIDERS: PCP Family Medicine; Visit Provider Internal Medicine Medical Oncology
DX: G35 Multiple sclerosis (principal)
CPT/HCPCS: 96365; 96366; 96375; 99213; J1100; J1200; J2350; J7040; J7050

== ENCOUNTER 2022-08-04 12:47 | Outpatient (CLI) | payer MEDICARE, MEDICAID, SELFPAY ==
--- NOTE | 2022-08-04 | MR_ITS ---
WS: [id number] MRI LEFT SHOULDER NONCONTRAST TECHNIQUE: Sagittal T2, coronal T1, T2 and proton density imaging. Axial gradient PDE imaging. CLINICAL INFORMATION: LT SHOULDER PAIN COMPARISON: None. FINDINGS: Moderate degenerative arthritis AC joint with mild edema. Small amount of subacromial and subdeltoid fluid. Subacromial spurring with impingement on the distal supraspinatus. Tendinopathy in the distal supraspinatus with mild chronic thinning. Normal infraspinatus. Normal teres minor. Subscapularis meg ears intact. Normal biceps tendon within the bicipital groove. Glenoid labrum appears grossly normal. Moderate deg enerative narrowing at the glenohumeral articulation. Intra-articular biceps tendon appears intact. B iceps labral anchor appears intact. MR/MR shoulder LT wo con* [id number] IMPRESSION: 1. Moderate degenerative arthritis AC joint with mild edema. Slight impingemen t on the distal supraspinatus. 2. Tendinopathy distal supraspinatus with mild chronic thinning. 3. No high-grade rotator cuff tears. 4. Biceps tendon intact within the bicipital groove. Intra-articular biceps te ndon appears intact. 5. Moderate degenerative narrowing at the glenohumeral articulation.
== END 2022-08-04 12:48 | disposition home or self-care (01) ==
PROVIDERS: PCP Family Medicine; Visit Provider Family Medicine
DX: M19.012 Primary osteoarthritis, left shoulder (principal)
CPT/HCPCS: 73221

== ENCOUNTER → 2022-08-10 08:38 | Outpatient (BNVA) | payer MEDICARE, MEDICAID, SELFPAY | PROVIDERS: PCP Family Medicine; Referring Provider Family Medicine; Visit Provider Specialist | DX: M75.02 Adhesive capsulitis of left shoulder (principal); G35 Multiple sclerosis; M21.372 Foot drop, left foot; M21.371 Foot drop, right foot | CPT/HCPCS: 20610; 73030; 99205; J1100; J2795; J3301 ==

== ENCOUNTER → 2022-08-26 09:58 | Outpatient (BNVA) | payer MEDICARE, MEDICAID, SELFPAY | PROVIDERS: PCP Family Medicine; Visit Provider Family Medicine | DX: E11.9 Type 2 diabetes mellitus without complications (principal); F51.04 Psychophysiologic insomnia; M62.838 Other muscle spasm | CPT/HCPCS: 80053; 80061; 82043; 83036; 83735; 85025 ==

== ENCOUNTER 2022-08-30 06:00 | Outpatient (RCR) | payer MEDICARE, MEDICAID, SELFPAY | END 2022-09-19 23:59 | disposition home or self-care (01) | LOC: MPT 06:00 | PROVIDERS: PCP Family Medicine; Visit Provider Specialist | DX: M25.512 Pain in left shoulder (principal) | CPT/HCPCS: 97110; 97140; 97162 ==

== ENCOUNTER 2022-09-20 06:00 | Outpatient (RCR) | payer MEDICARE, MEDICAID, SELFPAY | END 2022-10-20 23:59 | disposition home or self-care (01) | LOC: MPT 06:00 | PROVIDERS: PCP Family Medicine; Visit Provider Specialist | DX: M25.512 Pain in left shoulder (principal) | CPT/HCPCS: 97110 ==

== ENCOUNTER → 2022-09-29 09:41 | Outpatient (BNVA) | payer MEDICARE, MEDICAID, SELFPAY | PROVIDERS: PCP Family Medicine; Visit Provider Specialist | DX: G35 Multiple sclerosis (principal); G43.711 Chronic migraine without aura, intractable, with status migrainosus; Z79.899 Other long term (current) drug therapy; Z91.81 History of falling | CPT/HCPCS: 64615; 99212; J0585 ==

== ENCOUNTER → 2022-10-11 09:09 | Outpatient (BNVA) | payer MEDICARE, MEDICAID, SELFPAY | PROVIDERS: PCP Family Medicine; Visit Provider Family Medicine | DX: E78.5 Hyperlipidemia, unspecified (principal); Z13.6 Encounter for screening for cardiovascular disorders | CPT/HCPCS: 80053 ==

== ENCOUNTER → 2022-10-25 09:25 | Outpatient (BNVA) | payer MEDICARE, MEDICAID, SELFPAY | PROVIDERS: PCP Family Medicine; Visit Provider Nurse Practitioner Family | DX: Z20.822 Contact with and (suspected) exposure to COVID-19 (principal); U07.1 COVID-19 | CPT/HCPCS: 87426 ==

== ENCOUNTER → 2022-12-29 09:32 | Outpatient (BNVA) | payer MEDICARE, SELFPAY | PROVIDERS: PCP Family Medicine; Visit Provider Specialist | DX: G43.711 Chronic migraine without aura, intractable, with status migrainosus (principal); G37.9 Demyelinating disease of central nervous system, unspecified; G35 Multiple sclerosis | CPT/HCPCS: 99212; 64615 ==

== ENCOUNTER 2023-01-06 15:44 | Emergency (ER) | payer MEDICARE, SELFPAY ==
[2023-01-06 16:00] VITALS: BP 123/77; PULSE 84; RESP 18; TEMP 36.5; O2SAT 99; BMI 25.2
--- NOTE | 2023-01-06 16:14 | CTR_ITS ---
PROCEDURE INFORMATION: Exam: CT Abdomen And Pelvis Without Contrast Exam date and time: 01/06/2023 4:55 PM Age: 52 years old Clinical indication: Abdominal pain; Localized; Left lower quadrant (llq); Prior surgery; Surgery date: 6+ months; Surgery type: Choley, gastric bypass, hyster, appy; Additional info: Llq pain TECHNIQUE: Imaging protocol: Computed tomography of the abdomen and pelvis without contrast. Radiation optimization: All CT scans at this facility use at least one of these dose optimization techniques: automated exposure control; mA and/or kV adjustment per patient size (includes targeted exams where dose is matched to clinical indication); or iterative reconstruction. REPORTING DATA: Count of CT and Cardiac NM exams in prior 12 months: This patient has received 0 known CTs and 0 known cardiac nuclear medicine studies in the 12 months prior to the current study. COMPARISON: CR XR hip LT 2-3V wo/w pel* [id number] 10/24/2020 11:41 AM RADIATION DOSE METRICS: Total DLP (mGy-cm): 704.31 FINDINGS: Liver: Normal. No mass. Gallbladder and bile ducts: Surgical clips in the gallbladder fossa consistent with cholecystectomy. Pancreas: Normal. No ductal dilation. Spleen: One or more accessory splenules. Adrenal glands: Normal. No mass. Kidneys and ureters: Normal. No hydronephrosis. Stomach and bowel: Gastric sleeve surgery. Mild bowel wall thickening in loop of distal jejunum in the left abdomen with possible pneumatosis intestinalis. Infectious jejunitis versus ischemic bowel. Axial series 3, images 36-49. Appendix: Previous appendectomy. Intraperitoneal space: Unremarkable. No free air. No significant fluid collection. Vasculature: Calcification of the abdominal aorta and/or iliac arteries consistent with atherosclerotic vessel disease. One or more calcified pelvic phleboliths. Lymph nodes: Unremarkable. No enlarged lymph nodes. Urinary bladder: Unremarkable as visualized. Reproductive: Status post hysterectomy. Bones/joints: Unremarkable. No acute fracture. Soft tissues: Unremarkable. Other findings: Postoperative changes over the gastroesophageal junction. CT/CT abdomen pelvis wo con [id number] IMPRESSION: Mild bowel wall thickening in loop of distal jejunum in the left abdomen with possible pneumatosis intestinalis. Infectious jejunitis versus ischemic bowel. Axial series 3, images 36-49.
[2023-01-06 16:49] VITALS: RESP 17; O2SAT 96
[2023-01-06] MEDS: morphine 4 mg/mL SDV 1 mL IVP (16:49)
[2023-01-06] MEDS: ondansetron 2 mg/ML SDV 2 mL 4 MG IVP (16:49)
[2023-01-06] MEDS: sodium chloride 0.9% 1,000 ML 999 ML IV (16:49)
[2023-01-06 16:53] LABS: Basophils # 0.1 10^3/uL (0.0-0.1); Eosinophils # 0.3 10^3/uL (0.0-0.8); Eosinophils % 6.1 %; Hematocrit 42.5 % (36-47); Lymphocytes # 1.1 10^3/uL (0.8-4.8); Lymphocytes % 22.4 %; Mean Corpuscular HGB Conc 32.9 g/dL (30-55); Mean Platelet Volume 10.6 fL (7.4-10.4); Monocytes # 0.5 10^3/uL (0.2-0.9); Monocytes % 9.6 %; Neutrophils # 2.99 10^3/uL (1.8-7.7); Neutrophils % 60.7 %; Nucleated Red Blood Cells % 0 %; Platelet Count 283 10^3/cmm (157-399); Red Blood Count 4.67 10^6/uL (3.85-5.65); Red Cell Distribution Width 13.7 % (12.1-15.1); White Blood Count 4.92 10^3/uL (3.29-11.43)
[2023-01-06 17:15] LABS: Alanine Aminotransferase 11 U/L (0-33); Albumin Level 4.6 g/dL (3.5-5.2); Alkaline Phosphatase 100 U/L (35-105); Aspartate Amino Transferase 16 U/L (0-32); Blood Urea Nitrogen 12 mg/dL (6-20); Carbon Dioxide 23 mmol/L (22-29); Chloride 110 mmol/L (98-107); Globulin 2.7 g/dL (1.3-4.6); Glomerular Filtration Rate 65.2 mL/min (90-130); Glucose 100 mg/dL (65-115); Lipase 61 U/L (13-60); Osmolality Calculated 300 mOsm/kg (285-295); Sodium 145 mmol/L (136-145); Total Bilirubin 0.6 mg/dL (0.15-1.2); Total Protein 7.3 g/dL (6.6-8.7)
[2023-01-06] MEDS: prochlorperazine 10 mg/2 mL Inj 5 MG IVP (17:45)
--- NOTE | 2023-01-06 17:46 | W.ED.ABDPA2 ---
HPI - Abdominal Pain General: Chief Complaint: Abdominal Pain Stated Complaint: abd pain, left side, dr sent Time Seen by Provider: 01/06/23 16:08 History of Present Illness: This patient is a 52-year-old white female who presents to the emergency department with nausea, vomiting, diarrhea and some left lower quadrant abdominal pain. Patient was seen in the clinic prior to coming into the emergency department and they sent her here to rule out diverticulitis. Patient's past medical history is significant for multiple sclerosis. Past surgical history includes a gastric bypass, cholecystectomy, appendectomy and hysterectomy. Associated Symptoms: Reports diarrhea, nausea and vomiting Review of Systems General: Reports: 10 or more systems reviewed and unremarkable except in HPI and below GI: Reports: abdominal pain, nausea, vomiting and diarrhea PFSH ED PFSH: Medical History Cervical disc disease Cervical disc disorder with myelopathy of mid-cervical region Chronic migraine without aura, intractable, with status migrainosus Chronic neck pain with abnormal neurologic examination DM II (diabetes mellitus, type II), controlled GERD (gastroesophageal reflux disease) Herpes zoster dermatitis Incomplete bladder emptying Malignant hyperthermia Mild cognitive impairment Multiple sclerosis Multiple sclerosis Neurogenic bladder Recurrent UTI Surgical History H/O carpal tunnel repair H/O rotator cuff surgery H/O tubal ligation H/O: hysterectomy History of appendectomy History of cholecystectomy History of tonsillectomy and adenoidectomy Family History Other CAD (coronary artery disease) Diabetes Hypertension Multiple sclerosis Stroke Social History Smoking and tobacco/nicotine status: current every day tobacco/nicotine user cigarettes Packs smoked per day: 0.5 Alcohol intake: never Substance/Drug Use: never Lives independently: Yes Marital status: / Current occupational status: disabled Female Reproductive History: Para: 3 Spontaneous abortions: Yes Physical Exam Const: COMMON NORMALS: no acute distress, patient oriented x3 and no limitations GENERAL APPEARANCE: cooperative and comfortable HENMT: COMMON NORMALS: normocephalic, atraumatic, Normal nasal mucous membranes and turbinates present, moist oral mucous membranes and oropharynx normal HEAD & SCALP: normal to inspection, normocephalic and atraumatic FACE & SINUS: normal facial exam NOSE: Normal nasal mucous membranes and turbinates present Eye: COMMON NORMALS: Equal, round and reactive pupils present, EOMs intact bilaterally and conjunctivae normal GENERAL EYE: appearance normal, both eyes and all related structures CONJUNCTIVA: Yes conjunctivae normal PUPIL: Yes Equal, round and reactive pupils present Neck/C-Spine: COMMON NORMALS: supple and no JVD Chest: COMMONS NORMALS: normal inspection of the chest Resp: COMMON NORMALS: normal respiratory effort and clear to auscultation bilaterally AUSCULTATION: clear to auscultation bilaterally Cardio: COMMON NORMALS: no JVD, regular rate, regular rhythm, No gallops present (Cardio), No murmurs present (Cardio) and No rub (Cardio) RATE: regular rate RHYTHM: regular rhythm GI: COMMON NORMALS: Normal to inspection, nondistended, normoactive bowel sounds present and Soft to palpation AUSCULTATION: Yes normoactive bowel sounds PALPATION: Yes Soft to palpation OTHER: Mild left lower quadrant tenderness to deep palpation. No rebound or guarding. : COMMON NORMALS: Yes no CVA tenderness BLADDER/KIDNEY EXAM: Yes no CVA tenderness Back/Pelvis: COMMON NORMALS: no CVA tenderness and thoracic and lumbar spine normal to inspection Extremity: COMMON NORMALS: normal to inspection Neuro: COMMON NORMALS: patient oriented x3 and CN's II-XII intact bilaterally Psych: COMMON NORMALS: mental status grossly normal, Normal thought process present and cooperative THOUGHT PROCESS: Normal thought process present Skin: COMMON NORMALS: no rashes or lesions noted, turgor normal and no jaundice GENERAL SKIN EXAM: no rashes or lesions noted and turgor normal Course Vital Signs: Vital signs: Vital Signs Temperature 97.7 F 01/06/23 16:00 Pulse Rate 84 01/06/23 16:00 Respiratory Rate 17 01/06/23 16:49 Blood Pressure 123/77 01/06/23 16:00 Pulse Oximetry 96 01/06/23 16:49 Oxygen Delivery Me thod Room Air, Nasal C annula 01/06/23 16:00 MDM - Abdominal Pain Medical Decision Making CBC, CMP and lipase were normal. CT scan of the abdomen and pelvis was read by the radiologist. It is essentially normal except for one image in the jejunum that the radiologist mentioned there could be air in the bowel wall but it could be intraluminal as well. I do not think the patient has ischemic bowel. Her symptoms are consistent with gastroenteritis. He did not see any diverticulitis. Patient was given IV fluids and antiemetics in the emergency department as well as morphine for her pain. She was discharged in stable condition with prescriptions for the antiemetics. Recommended she push clear liquids only until symptoms subside then advance diet slowly. Follow-up with primary care physician early next week if no improvement. Lab Data 01/06/23 16:45 01/06/23 16:45 Labs/Radiology: Radiology Impressions Abdomen/Pelvis CT 01/06/23 16:14 IMPRESSION: Mild bowel wall thickening in loop of distal jejunum in the left abdomen with possible pneumatosis intestinalis. Infectious jejunitis versus ischemic bowel. Axial series 3, images 36-49. ADDENDUM: 01/06/23 1722 History: Clinically this appears to be infectious gastroenteritis, rule out diverticulitis. Nausea, vomiting, left abdominal pain. Lactic acid is pending. THIS REPORT CONTAINS FINDINGS THAT MAY BE CRITICAL TO PATIENT CARE. The findings were verbally communicated via telephone conference with BARRY HERNANDEZ at 5:27 PM SURGERY NURSE on 01/06/2023. The findings were acknowledged and understood. Laboratory Results WBC 4.92 10^3/uL (3.29-11.43) 01/06/23 16:45 RBC 4.67 10^6/uL (3.85-5.65) 01/06/23 16:45 Hgb 14.00 g/dL (11.27-16.99) 01/06/23 16:45 Hct 42.5 % (36-47) 01/06/23 16:45 MCV 91.0 fl (85-98) 01/06/23 16:45 MCH 30.0 pg (27-33) 01/06/23 16:45 MCHC 32.9 g/dL (30-55) 01/06/23 16:45 RDW 13.7 % (12.1-15.1) 01/06/23 16:45 Plt Count 283 10^3/cmm (157-399) 01/06/23 16:45 MPV 10.6 fL (7.4-10.4) H 01/06/23 16:45 Neut % (Auto) 60.7 % 01/06/23 16:45 Lymph % (Auto) 22.4 % 01/06/23 16:45 [place] % (Auto) 9.6 % 01/06/23 16:45 Eos % (Auto) 6.1 % 01/06/23 16:45 Baso % (Auto) 1.0 % 01/06/23 16:45 Neut # (Auto) 2.99 10^3/uL (1.8-7.7) 01/06/23 16:45 Lymph # (Auto) 1.1 10^3/uL (0.8-4.8) 01/06/23 16:45 [place] # (Auto) 0.5 10^3/uL (0.2-0.9) 01/06/23 16:45 Eos # (Auto) 0.3 10^3/uL (0.0-0.8) 01/06/23 16:45 Baso # (Auto) 0.1 10^3/uL (0.0-0.1) 01/06/23 16:45 Nucleated RBC % (auto) 0 % 01/06/23 16:45 Nucleated RBCs # 0.0 /100WBC 01/06/23 16:45 Sodium 145 mmol/L (136-145) 01/06/23 16:45 Potassium 4.0 mmol/L (3.5-5.1) 01/06/23 16:45 Chloride 110 mmol/L (98-107) H 01/06/23 16:45 Carbon Dioxide 23 mmol/L (22-29) 01/06/23 16:45 Anion Gap 16.0 (5-19) 01/06/23 16:45 BUN 12 mg/dL (6-20) 01/06/23 16:45 Creatinine 0.9 mg/dL (0.5-0.9) 01/06/23 16:45 GFR Calculation 65.2 mL/min (90-130) L 01/06/23 16:45 Glucose 100 mg/dL (65-115) 01/06/23 16:45 Calculated Osmolality 300 mOsm/kg (285-295) H 01/06/23 16:45 Calcium 10.0 mg/dL (8.5-10.5) 01/06/23 16:45 Total Bilirubin 0.6 mg/dL (0.15-1.2) 01/06/23 16:45 AST 16 U/L (0-32) 01/06/23 16:45 ALT 11 U/L (0-33) 01/06/23 16:45 Alkaline Phosphatase 100 U/L (35-105) 01/06/23 16:45 Total Protein 7.3 g/dL (6.6-8.7) 01/06/23 16:45 Albumin 4.6 g/dL (3.5-5.2) 01/06/23 16:45 Globulin 2.7 g/dL (1.3-4.6) 01/06/23 16:45 Lipase 61 U/L (13-60) H 01/06/23 16:45 All radiology interpretation(s) finalized by discharge Discharge Plan Discharge Patient Disposition: Home Clinical Impression: Gastroenteritis Condition: Stable Prescriptions: New ondansetron 4 mg tablet,disintegrating 4 mg PO Q6H PRN (Reason: nausea and vomiting) Qty: 20 0RF Compazine 5 mg tablet 5 mg PO Q6H PRN (Reason: nausea and vomiting) 1 Days Qty: 20 0RF No Action Botox 100 unit recon soln 155 unit IM .q12w Rx Instructions: every 12 weeks. (DME) nebulizer See Rx Instructions .Route .MEDSUPPLY Qty: 1 0RF Rx Instructions: Tubing and supplies ([facility] [place]) Walker See Rx Instructions .Route .MEDSUPPLY Qty: 1 0RF Rx Instructions: As directed By HOME (DME) Foot Drop Braces See Rx Instructions .Route .MEDSUPPLY Qty: 1 0RF Rx Instructions: As directed ([facility] [place]) Teto Walker See Rx Instructions .Route .MEDSUPPLY Qty: 1 0RF Rx Instructions: As directed nystatin 100,000 unit/mL suspension 1 ml PO DAILY Qty: 60 0RF Rx Instructions: swish and swallow daily for 7 days. molnupiravir 200 mg capsule 800 mg PO Q12H 5 Days Qty: 40 0RF (DME) catheter 12 Fr misc See Rx Instructions .ROUTE .MEDSUPPLY Qty: 100 2RF Rx Instructions: three times daily gabapentin 300 mg capsule See Rx Instructions PO TID Qty: 120 0RF Rx Instructions: Take 1 in Am, 1 at noon, and two at bedtime. albuterol sulfate 2.5 mg /3 mL (0.083 %) solution for nebulization 2.5 mg INHALATION Q4H PRN (Reason: shortness of breath or wheezing) 90 Days Qty: 180 1RF Flonase Allergy Relief 50 mcg/actuation spray,suspension 1 spray intranasal BID@0700,1900 90 Days Qty: 54.6 3RF Rx Instructions: administer into each nostril montelukast [Singulair] 10 mg tablet 10 mg PO DAILY Qty: 90 3RF omeprazole 40 mg capsule,delayed release(DR/EC) 40 mg PO BID@07,19 90 Days Qty: 180 1RF Ocrevus 30 mg/mL solution See Rx Instructions .ROUTE .COMPLEX Qty: 20 0RF Rx Instructions: mg intravenously, every 6 months. tramadol 50 mg tablet 50 mg PO Q6H PRN (Reason: pain) Qty: 20 0RF Linzess 72 mcg capsule 72 mcg PO QAM Qty: 90 1RF duloxetine 60 mg capsule,delayed release(DR/EC) 60 mg PO DAILY Qty: 90 1RF fenofibrate nanocrystallized 145 mg tablet 145 mg PO DAILY@0700 90 Days Qty: 90 1RF atorvastatin 40 mg tablet 40 mg PO .qhs Qty: 90 1RF buspirone 5 mg tablet See Rx Instructions .ROUTE .COMPLEX Qty: 180 0RF Dose Instruction: Take 1 tablet by mouth twice daily Rx Instructions: Take 1 tablet by mouth twice daily Botox 100 unit recon soln 155 unit IM ONCE Qty: 2 0RF Rx Instructions: Use FDA protocol for migraines tamsulosin 0.4 mg capsule See Rx Instructions .ROUTE .COMPLEX Qty: 90 0RF Dose Instruction: TAKE 1 CAPSULE BY MOUTH ONCE DAILY AT 7 AM Rx Instructions: TAKE 1 CAPSULE BY MOUTH ONCE DAILY AT 7 AM albuterol sulfate 90 mcg/actuation HFA aerosol inhaler See Rx Instructions .ROUTE .COMPLEX Qty: 36 0RF Dose Instruction: INHALE 2 PUFFS BY MOUTH EVERY 6 HOURS NEEDED FOR SHORTNESS OF BREATH FOR WHEEZING Rx Instructions: INHALE 2 PUFFS BY MOUTH EVERY 6 HOURS NEEDED FOR SHORTNESS OF BREATH FOR WHEEZING tizanidine 4 mg tablet See Rx Instructions .ROUTE .COMPLEX Qty: 90 0RF Dose Instruction: TAKE 1 TABLET BY MOUTH EVERY 8 HOURS FOR MUSCLE SPASTICITY Rx Instructions: TAKE 1 TABLET BY MOUTH EVERY 8 HOURS FOR MUSCLE SPASTICITY zonisamide 100 mg capsule See Rx Instructions .ROUTE .COMPLEX Qty: 120 0RF Dose Instruction: TAKE 4 CAPSULES BY MOUTH ONCE DAILY Rx Instructions: TAKE 4 CAPSULES BY MOUTH ONCE DAILY quetiapine 100 mg tablet See Rx Instructions .ROUTE .COMPLEX Qty: 30 5RF Dose Instruction: TAKE 1 TABLET BY MOUTH EVERY DAY AT BEDTIME Rx Instructions: TAKE 1 TABLET BY MOUTH EVERY DAY AT BEDTIME All Day Allergy (cetirizine) 10 mg capsule 10 mg PO DAILY@0700 Discharge Orders: Discharge ED (Routine); Ordered 01/06/23 Ordered By: Rogelio Hernandez Referrals: Tatyana Arreaga DO [Primary Care Provider] - Patient Instructions: Gastroenteritis (ED) Coding Level of Care Code ED Supervisor [employer] for Claudia Philip
== END 2023-01-06 18:09 | disposition home or self-care (01) ==
PROVIDERS: Emergency Provider Emergency Medicine; PCP Family Medicine
DX: K52.9 Noninfective gastroenteritis and colitis, unspecified (principal); F17.210 Nicotine dependence, cigarettes, uncomplicated; E11.9 Type 2 diabetes mellitus without complications; G35 Multiple sclerosis
CPT/HCPCS: 74176; 80053; 83690; 85025; 96374; 96375; 99285; J0780; J2270; J2405; J7030

== ENCOUNTER 2023-01-30 10:16 | Oncology outpatient (recurring) (ONCR) | payer MEDICARE, SELFPAY ==
[2023-01-30] MEDS: acetaminophen 500 mg Tablet 1000 MG PO (10:55)
[2023-01-30] MEDS: sodium chloride 0.9% 250 ML 75 ML IV (10:55)
[2023-01-30] MEDS: diphenhydrAMINE 50 mg/mL SDV 1mL 25 MG IVP (10:56)
[2023-01-30] MEDS: methylPREDNISolone sod succ 125 mg SDV IVP (11:01)
[2023-01-30 11:04] VITALS: BP 114/75; PULSE 89; RESP 16; TEMP 36.1; O2SAT 100
[2023-01-30 11:30] VITALS: BP 108/71; PULSE 88; RESP 16; TEMP 36.6; O2SAT 100
[2023-01-30] MEDS: ocrelizumab 600 MG in sodium chloride 0.9% 500 ML 100 MG IV (11:30)
[2023-01-30 11:45] VITALS: BP 106/73; PULSE 82; RESP 16; TEMP 36.6; O2SAT 100
[2023-01-30 12:00] VITALS: BP 113/72; PULSE 83; RESP 16; TEMP 36.6; O2SAT 99
[2023-01-30 12:30] VITALS: BP 96/70; PULSE 62; RESP 16; TEMP 36.5; O2SAT 98
[2023-01-30 14:10] VITALS: BP 113/75; PULSE 89; RESP 16; TEMP 36.4; O2SAT 98
== END 2023-01-30 23:59 | disposition home or self-care (01) ==
LOC: ONCMED 10:16
PROVIDERS: PCP Family Medicine; Visit Provider Internal Medicine Medical Oncology
DX: G35 Multiple sclerosis (principal)
CPT/HCPCS: 96375; 96413; 96415; J1200; J2350; J2930; J7040; J7050

== ENCOUNTER 2023-02-16 17:14 | Emergency (ER) | payer MEDICARE, SELFPAY ==
[2023-02-16 17:20] VITALS: BP 148/80; PULSE 87; TEMP 36.8; O2SAT 99; BMI 24.4
[2023-02-16 17:51] LABS: Basophils % 0.2 %; Eosinophils # 0.1 10^3/uL (0.0-0.8); Eosinophils % 1.7 %; Hematocrit 42.6 % (36-47); Lymphocytes # 0.9 10^3/uL (0.8-4.8); Lymphocytes % 19.1 %; Mean Corpuscular HGB Conc 33.1 g/dL (30-55); Mean Corpuscular Hemoglobin 30.8 pg (27-33); Mean Platelet Volume 10.8 fL (7.4-10.4); Monocytes # 0.5 10^3/uL (0.2-0.9); Monocytes % 11.2 %; Neutrophils # 3.19 10^3/uL (1.8-7.7); Neutrophils % 67.6 %; Nucleated Red Blood Cells % 0 %; Platelet Count 223 10^3/cmm (157-399); Red Blood Count 4.58 10^6/uL (3.85-5.65); White Blood Count 4.72 10^3/uL (3.29-11.43)
[2023-02-16 18:03] LABS: Alanine Aminotransferase 166 U/L (0-33); Alkaline Phosphatase 132 U/L (35-105); Anion Gap 20.1 (5-19); Aspartate Amino Transferase 195 U/L (0-32); Blood Urea Nitrogen 12 mg/dL (6-20); Carbon Dioxide 18 mmol/L (22-29); Chloride 105 mmol/L (98-107); Globulin 2.8 g/dL (1.3-4.6); Glomerular Filtration Rate 87.2 mL/min (90-130); Glucose 90 mg/dL (65-115); Lipase 82 U/L (13-60); Osmolality Calculated 287 mOsm/kg (285-295); Potassium 4.1 mmol/L (3.5-5.1); Sodium 139 mmol/L (136-145); Total Bilirubin 0.5 mg/dL (0.15-1.2); Total Protein 6.8 g/dL (6.6-8.7)
[2023-02-16 18:04] VITALS: BP 137/99; PULSE 87; RESP 21; O2SAT 96
--- NOTE | 2023-02-16 18:04 | ECG_ITS ---
[facility] Test Date: 2023-02-16 Pat Name: Ranjit Bundy Department: Room: Gender: Female Campaign Assistant: : [id number] Requested By: Tim Sal Order Number: [id number] Ellyn MD: Dominik Zamudio M.D. Measurements Intervals [place] Rate: 80 P: 52 MN: 172 QRS: 26 QRSD: 90 T: 47 QT: 372 QTc: 430 Interpretive Statements SINUS RHYTHM Compared to ECG 03/01/2017 15:18:29 No significant changes Electronically Signed On 02-16-2023 18:19:58 DIE INSPECTOR by Dominik Zamudio M.D. [email or web address]
--- NOTE | 2023-02-16 18:05 | ED_ITS ---
HPI - Nausea/Vomiting/Diarrhea 2 General: Chief complaint: Nausea/Vomiting/Diarrhea Stated complaint: d,n,v,fever Time Seen by Provider: 02/16/23 18:03 History of Present Illness: 52-year-old female comes in today for co mplaints of nausea vomiting diarrhea for 4 days. Patient appears mildly unwell but not toxic. Patient reports some generalized abdominal pain. Patient does report an occasional cough with productive sputum. Patient endorses weakness. Patient has a history of gallbladder surgery, appendectomy, weight loss surgery, and hysterectomy. Patient endorses cigarette smoking but has not smoked for 4 days. Associated nausea: Yes Associated symtoms: Reports nausea; Denies chest pain Review of Systems 2 General: Reports: 10 or more systems reviewed and unremarkable except in HPI and below Const: Reports: chills ENMT: Denies: throat pain Card: Denies: chest pain Resp: Reports: productive cough GI: Reports: abdominal pain, nausea, vomiting and diarrhea PFSH ED 2 PFSH: Medical History Herpes zoster dermatitis Malignant hyperthermia Neurogenic bladder Cervical disc disease Cervical disc disorder with myelopathy of mid-cervical region Multiple sclerosis Chronic neck pain with abnormal neurologic examination Chronic migraine without aura, intractable, with status migrainosus Mild cognitive impairment Recurrent UTI Incomplete bladder emptying Multiple sclerosis GERD (gastroesophageal reflux disease) DM II (diabetes mellitus, type II), controlled Surgical History H/O: hysterectomy H/O tubal ligation H/O carpal tunnel repair History of appendectomy History of cholecystectomy History of tonsillectomy and adenoidectomy H/O rotator cuff surgery Family History Other CAD (coronary artery disease) Diabetes Hypertension Multiple sclerosis Stroke Social History Smoking and tobacco/nicotine status: current every day tobacco/nicotine user cigarettes Packs smoked per day: 0.5 Alcohol intake: never Substance/Drug Use: never Lives independently: Yes Marital status: / Current occupational status: disabled Female Reproductive History: Para: 3 Spontaneous abortions: Yes Physical Exam 2 Const: COMMON NORMALS: alert HENMT: COMMON NORMALS: normocephalic HEAD & SCALP: normocephalic Neck/C-Spine: COMMON NORMALS: full ROM Resp: COMMON NORMALS: normal respiratory effort AUSCULTATION: rhonchi Cardio: COMMON NORMALS: regular rate and regular rhythm RATE: regular rate RHYTHM: regular rhythm GI: COMMON NORMALS: Soft to palpation and non-tender PALPATION: Yes Soft to palpation : COMMON NORMALS: Yes no CVA tenderness BLADDER/KIDNEY EXAM: Yes no CVA tenderness Back/Pelvis: COMMON NORMALS: no CVA tenderness Extremity: COMMON NORMALS: full ROM Neuro: SENSORIUM/ORIENTATION: Yes alert Skin: COMMON NORMALS: turgor normal GENERAL SKIN EXAM: turgor normal Course 2 Vital Signs: Vital signs: Vital Signs Temperature 98.2 F 02/16/23 17:20 Pulse Rate 85 02/16/23 19:06 Respiratory Rate 18 02/16/23 18:45 Blood Pressure 136/88 02/16/23 19:06 Pulse Oximetry 96 02/16/23 19:06 Oxygen Delivery Me thod Room Air 02/16/23 18:45 MDM - Nausea/Vomiting/Diarrhea Medical Decision Making Patient comes in for nausea vomiting diarrhea for 4 days. Patient appears unwell but nontoxic. Abdomen soft mild tenderness, no rebound or guarding. Good skin turgor. Oral mucosas moist. Vital signs are normal. Differential diagnosis includes viral syndrome, pneumonia, bowel obstruction, dehydration, ACS. CBC is unremarkable. CMP noted some mild elevation in liver enzymes most likely due to response to a viral illness. Urinalysis showed no signs of infection. Patient was negative for influenza and COVID. Troponin showed significant change at 2 hours. EKG showed no changes at [address] of the abdomen and pelvis noted inflammation in the bowel suggesting acute diarrheal illness. Reviewed exam with patient with recommendations for treatment for gastroenteritis. Discussed need for follow-up or return to the ER. Patient reported understanding agreed to plan. Lab Data 02/16/23 17:41 02/16/23 17:41 Radiology Impressions Abdomen/Pelvis CT 02/16/23 18:16 IMPRESSION: There is fluid throughout the colon suggesting an acute diarrheal illness. No significant mural thickening or mucosal enhancement is evident. Postsurgical stomach does not demonstrate mucosal enhancement or visible ulcer, but gastritis is not excluded. Laboratory Results WBC 4.72 10^3/uL (3.29-11.43) 12/28/23 17:41 RBC 4.58 10^6/uL (3.85-5.65) 02/16/23 17:41 Hgb 14.10 g/dL (11.27-16.99) 02/16/23 17:41 Hct 42.6 % (36-47) 02/16/23 17:41 MCV 93.0 fl (85-98) 02/16/23 17:41 MCH 30.8 pg (27-33) 02/16/23 17:41 MCHC 33.1 g/dL (30-55) 02/16/23 17:41 RDW 13.0 % (12.1-15.1) 02/16/23 17:41 Plt Count 223 10^3/cmm (157-399) 02/16/23 17:41 MPV 10.8 fL (7.4-10.4) H 02/16/23 17:41 Neut % (Auto) 67.6 % 02/16/23 17:41 Lymph % (Auto) 19.1 % 02/16/23 17:41 [place] % (Auto) 11.2 % 02/16/23 17:41 Eos % (Auto) 1.7 % 02/16/23 17:41 Baso % (Auto) 0.2 % 02/16/23 17:41 Neut # (Auto) 3.19 10^3/uL (1.8-7.7) 02/16/23 17:41 Lymph # (Auto) 0.9 10^3/uL (0.8-4.8) 02/16/23 17:41 Swift # (Auto) 0.5 10^3/uL (0.2-0.9) 02/16/23 17:41 Eos # (Auto) 0.1 10^3/uL (0.0-0.8) 02/16/23 17:41 Baso # (Auto) 0.0 10^3/uL (0.0-0.1) 02/16/23 17:41 Nucleated RBC % (auto) 0 % 02/16/23 17:41 Nucleated RBCs # 0.0 /100WBC 02/16/23 17:41 Sodium 139 mmol/L (136-145) 02/16/23 17:41 Potassium 4.1 mmol/L (3.5-5.1) 02/16/23 17:41 Chloride 105 mmol/L (98-107) 02/16/23 17:41 Carbon Dioxide 18 mmol/L (22-29) L 02/16/23 17:41 Anion Gap 20.1 (5-19) H 02/16/23 17:41 BUN 12 mg/dL (6-20) 02/16/23 17:41 Creatinine 0.7 mg/dL (0.5-0.9) 02/16/23 17:41 GFR Calculation 87.2 mL/min (90-130) L 02/16/23 17:41 Glucose 90 mg/dL (65-115) 02/16/23 17:41 Calculated Osmolality 287 mOsm/kg (285-295) 02/16/23 17:41 Calcium 9.0 mg/dL (8.5-10.5) 02/16/23 17:41 Total Bilirubin 0.5 mg/dL (0.15-1.2) 02/16/23 17:41 AST 195 U/L (0-32) H 02/16/23 17:41 ALT 166 U/L (0-33) H 02/16/23 17:41 Alkaline Phosphatase 132 U/L (35-105) H 02/16/23 17:41 Troponin T Baseline < 6 ng/L (0-10) 02/16/23 17:41 Troponin T 120 Minute 6.95 ng/L (0-10) 02/16/23 20:13 Delta Troponin T 0.12346 ABS# (0-10) 02/16/23 20:13 Total Protein 6.8 g/dL (6.6-8.7) 02/16/23 17:41 Albumin 4.0 g/dL (3.5-5.2) 02/16/23 17:41 Globulin 2.8 g/dL (1.3-4.6) 02/16/23 17:41 Lipase 82 U/L (13-60) H 02/16/23 17:41 Urine Color Dark yellow (Yellow) 02/16/23 16:08 Urine Appearance Clear (CLEAR) 02/16/23 16:08 Urine pH 5 (5-7) 02/16/23 16:08 Ur Specific [place] 1.030 (1.005-1.030) 02/16/23 16:08 Urine Protein Neg (Negative) 02/16/23 16:08 Urine Glucose (UA) Norm (Normal) 02/16/23 16:08 Urine Ketones 1+ (Negative) H 02/16/23 16:08 Urine Blood Neg (Negative) 02/16/23 16:08 Urine Nitrate Negative (Negative) 02/16/23 16:08 Urine Bilirubin 1+ (Negative) H 02/16/23 16:08 Urine Urobilinogen 1 mg/dL (Negative) H 02/16/23 16:08 Ur Leukocyte Esterase Negative (Negative) 02/16/23 16:08 Influenza Type A Ag negative (Negative) 02/16/23 16:08 Influenza Type B Ag negative (Negative) 02/16/23 16:08 SARS-CoV-2 Ag (Rapid) negative (Negative) 02/16/23 16:08 All radiology interpretation(s) finalized by discharge EKG Data EKG 1: I personally reviewed and interpreted this EKG as follows: EKG interpretation date: 02/16/23 EKG interpretation time: 18:20 Prior EKG tracings: not available for review Interpretation: EKG shows sinus rhythm with a regular rate at [address] elevation or ectopy is noted. No prior exam was available for comparison. Computer generated interpretation: Sinus rhythm, normal EKG, unconfirmed report. Discharge Plan Discharge Patient Disposition: Home Clinical Impression: Gastroenteritis Condition: Stable Prescriptions: New ondansetron 4 mg tablet,disintegrating 4 mg PO Q8H PRN (Reason: nausea and vomiting) Qty: 10 0RF No Action Botox 100 unit recon soln 155 unit IM .q12w Rx Instructions: every 12 weeks. (DME) nebulizer See Rx Instructions .Route .MEDSUPPLY Qty: 1 0RF Rx Instructions: Tubing and supplies (DME) Walker See Rx Instructions .Route .MEDSUPPLY Qty: 1 0RF Rx Instructions: As directed By HOME (DME) Foot Drop Braces See Rx Instructions .Route .MEDSUPPLY Qty: 1 0RF Rx Instructions: As directed (DME) Teto Walker See Rx Instructions .Route .MEDSUPPLY Qty: 1 0RF Rx Instructions: As directed nystatin 100,000 unit/mL suspension 1 ml PO DAILY Qty: 60 0RF Rx Instructions: swish and swallow daily for 7 days. molnupiravir 200 mg capsule 800 mg PO Q12H 5 Days Qty: 40 0RF amoxicillin-pot clavulanate 875-125 mg tablet 1 tab PO TID Qty: 30 0RF (DME) catheter 12 Fr misc See Rx Instructions .ROUTE .MEDSUPPLY Qty: 100 2RF Rx Instructions: three times daily gabapentin 300 mg capsule See Rx Instructions PO TID Qty: 120 0RF Rx Instructions: Take 1 in Am, 1 at noon, and two at bedtime. albuterol sulfate 2.5 mg /3 mL (0.083 %) solution for nebulization 2.5 mg INHALATION Q4H PRN (Reason: shortness of breath or wheezing) 90 Days Qty: 180 1RF Flonase Allergy Relief 50 mcg/actuation spray,suspension 1 spray intranasal BID@0700,1900 90 Days Qty: 54.6 3RF Rx Instructions: administer into each nostril montelukast [Singulair] 10 mg tablet 10 mg PO DAILY Qty: 90 3RF omeprazole 40 mg capsule,delayed release(DR/EC) 40 mg PO BID@07,19 90 Days Qty: 180 1RF tramadol 50 mg tablet 50 mg PO Q6H PRN (Reason: pain) Qty: 20 0RF Linzess 72 mcg capsule 72 mcg PO QAM Qty: 90 1RF duloxetine 60 mg capsule,delayed release(DR/EC) 60 mg PO DAILY Qty: 90 1RF fenofibrate nanocrystallized 145 mg tablet 145 mg PO DAILY@0700 90 Days Qty: 90 1RF atorvastatin 40 mg tablet 40 mg PO .qhs Qty: 90 1RF buspirone 5 mg tablet See Rx Instructions .ROUTE .COMPLEX Qty: 180 0RF Dose Instruction: Take 1 tablet by mouth twice daily Rx Instructions: Take 1 tablet by mouth twice daily Botox 100 unit recon soln 155 unit IM ONCE Qty: 2 0RF Rx Instructions: Use FDA protocol for migraines tamsulosin 0.4 mg capsule See Rx Instructions .ROUTE .COMPLEX Qty: 90 0RF Dose Instruction: TAKE 1 CAPSULE BY MOUTH ONCE DAILY AT 7 AM Rx Instructions: TAKE 1 CAPSULE BY MOUTH ONCE DAILY AT 7 AM albuterol sulfate 90 mcg/actuation HFA aerosol inhaler See Rx Instructions .ROUTE .COMPLEX Qty: 36 0RF Dose Instruction: INHALE 2 PUFFS BY MOUTH EVERY 6 HOURS NEEDED FOR SHORTNESS OF BREATH FOR WHEEZING Rx Instructions: INHALE 2 PUFFS BY MOUTH EVERY 6 HOURS NEEDED FOR SHORTNESS OF BREATH FOR WHEEZING quetiapine 100 mg tablet See Rx Instructions .ROUTE .COMPLEX Qty: 30 5RF Dose Instruction: TAKE 1 TABLET BY MOUTH EVERY DAY AT BEDTIME Rx Instructions: TAKE 1 TABLET BY MOUTH EVERY DAY AT BEDTIME Ocrevus 30 mg/mL solution See Rx Instructions .ROUTE .COMPLEX Qty: 20 0RF Rx Instructions: mg intravenously, every 6 months. tizanidine 4 mg tablet See Rx Instructions .ROUTE .COMPLEX Qty: 90 0RF Dose Instruction: TAKE 1 TABLET BY MOUTH EVERY 8 HOURS FOR MUSCLE SPASTICITY Rx Instructions: TAKE 1 TABLET BY MOUTH EVERY 8 HOURS FOR MUSCLE SPASTICITY zonisamide 100 mg capsule See Rx Instructions .ROUTE .COMPLEX Qty: 120 0RF Dose Instruction: TAKE 4 CAPSULES BY MOUTH ONCE DAILY Rx Instructions: TAKE 4 CAPSULES BY MOUTH ONCE DAILY All Day Allergy (cetirizine) 10 mg capsule 10 mg PO DAILY@0700 ondansetron 4 mg tablet,disintegrating 4 mg PO Q6H PRN (Reason: nausea and vomiting) Qty: 20 0RF Discharge Orders: Discharge ED (Routine); Ordered 02/16/23 Ordered By: Tim Reyes Referrals: Tatyana Arreaga DO [Primary Care Provider] - Discharge Diet: Usual diet Discharge Activity: Increase activity as tolerated Patient Instructions: Gastroenteritis (ED) Activity Restrictions/Additional Instructions: Home and rest. Drink plenty water and fluids. Use acetaminophen or ibuprofen for pain and fever. Use ondansetron as needed for nausea and vomiting. Use [id number] Imodium for diarrhea. Follow-up with primary care for further instructions. Return to ED for new concerns. Coding Level of Care Code ED Electrical Manufacturing Technician for Claudia Philip
[2023-02-16 18:13] LABS: Add Urine Microscopic? NO; Charge for UA Resulting for Rev
[2023-02-16] MEDS: ondansetron 2 mg/ML SDV 2 mL 4 MG IVP (18:16)
[2023-02-16] MEDS: sodium chloride 0.9% 1,000 ML 999 ML IV (18:16)
--- NOTE | 2023-02-16 18:16 | CTR_ITS ---
PROCEDURE INFORMATION: Exam: CT Abdomen And Pelvis With Contrast Exam date and time: 02/16/2023 7:44 PM Age: 52 years old Clinical indication: Nausea and vomiting; Prior surgery; Surgery date: 6+ months; Surgery type: Appy, clare, hyst, gastric weight loss; Additional info: N/v/d, HX of diveritculosis TECHNIQUE: Imaging protocol: Computed tomography of the abdomen and pelvis with contrast. Radiation optimization: All CT scans at this facility use at least one of these dose optimization techniques: automated exposure control; mA and/or kV adjustment per patient size (includes targeted exams where dose is matched to clinical indication); or iterative reconstruction. Contrast material: OMNI 350; Contrast volume: 100 ml; Contrast route: INTRAVENOUS (IV); REPORTING DATA: Count of CT and Cardiac NM exams in prior 12 months: This patient has received [address] and 0 known cardiac nuclear medicine studies in the 12 months prior to the current study. COMPARISON: CT abdomen pelvis wo con [id number] 01/06/2023 4:55 PM RADIATION DOSE METRICS: Total DLP (mGy-cm): 483 FINDINGS: Lungs: Mild dependent change noted at each lung base. Pleural spaces: No pleural fluid. Heart: Normal heart size. Diaphragm: Moderate sliding hiatal hernia. Liver: Normal configuration. Homogeneous parenchyma. Gallbladder and bile ducts: Prior cholecystectomy. Pancreas: Normal. No ductal dilation. Spleen: Normal spleen with small anterior accessory spleen. Adrenal glands: Normal configuration. Kidneys and ureters: Scarring with parenchymal calcification noted in the left mid kidney. No evidence of renal obstruction, solid mass, or inflammation. Stomach and bowel: Changes of prior gastric sleeve procedure. Normal caliber small bowel. There is fluid noted throughout the lumen of the colon without visible inflammation. Appendix: Prior appendectomy. Intraperitoneal space: No free air. No significant fluid collection. Vasculature: Normal caliber arterial structures. Mild calcific plaque. Lymph nodes: No enlarged lymph nodes. Urinary bladder: Unremarkable as visualized. Reproductive: Prior hysterectomy. No evidence of vaginal cuff or adnexal mass. Bones/joints: Minimal spinal degenerative change. Normal sacroiliac joints. Normal appearance of the hips bilaterally. Soft tissues: Unremarkable. CT/CT abdomen pelvis w con* [id number] IMPRESSION: There is fluid throughout the colon suggesting an acute diarrheal illness. No significant mural thickening or mucosal enhancement is evident. Postsurgical stomach does not demonstrate mucosal enhancement or visible ulcer, but gastritis is not excluded.
--- NOTE | 2023-02-16 18:16 | XRR_ITS ---
PROCEDURE INFORMATION: Exam: XR Chest Exam date and time: 02/16/2023 7:30 PM Age: 52 years old Clinical indication: Cough; Additional info: Cough, weakness TECHNIQUE: Imaging protocol: Radiologic exam of the chest. Views: 1 view. COMPARISON: CR XR chest 1V portable [id number] 11/05/2019 8:41 AM FINDINGS: Tubes, catheters and devices: Portion of catheter remains present over left hemithorax extending across midline with tip projecting over region of superior vena cava near level of azygous vein, similar to prior study 11/05/2019. Lungs: Slight probable atelectasis and/or fibrosis right lung base. Otherwise, no new focal infiltrates seen of the lungs. Pleural spaces: No large or obvious pneumothorax nor pleural effusion seen. Heart/Mediastinum: Heart size appears within normal. Bones/joints: Degenerative changes spine. XR/XR chest 1V portable [id number] IMPRESSION: No acute findings seen of the chest.
[2023-02-16 18:19] LABS: Bilirubin Urine 1+ (Negative); Blood Urine Neg (Negative); Glucose Urine UA Norm (Normal); Ketones Urine 1+ (Negative); Leukocyte Esterase Urine Negative (Negative); Nitrate Urine Negative (Negative); Protein Urine Neg (Negative); Urine Appearance Clear (CLEAR); Urine Color Dark Yellow (Yellow); Urobilinogen Urine 1 mg/dL (Negative); pH Urine 5 (5-7)
[2023-02-16 18:26] LABS: Troponin(5th) Baseline < 6 ng/L (0-10)
[2023-02-16 18:43] VITALS: RESP 18; O2SAT 98
[2023-02-16] MEDS: morphine 4 mg/mL SDV 1 mL IVP (18:43)
[2023-02-16 18:44] LABS: SARS Covid-2 Antigen negative (Negative)
[2023-02-16 18:45] VITALS: BP 133/89; PULSE 84; RESP 18; O2SAT 98
[2023-02-16 18:45] LABS: Influenza A by IFA negative (Negative); Influenza B by IFA negative (Negative)
[2023-02-16 19:06] VITALS: BP 136/88; PULSE 85; O2SAT 96
[2023-02-16] MEDS: iohexol 350 mg/mL 500 mL Btl (per mL) IV (19:53)
--- NOTE | 2023-02-16 20:04 | ECG_ITS ---
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 Measurements Intervals [place] Rate: 81 P: 47 DE: 183 QRS: 31 QRSD: 90 T: 28 QT: 385 QTc: 448 Interpretive Statements SINUS RHYTHM NONSPECIFIC T-WAVE ABNORMALITY Compared to ECG 02/16/2023 18:16:58 T-wave abnormality now present Electronically Signed On 02-17-2023 15:40:49 PRECISION OPTICS TECHNICIAN by Dominik Zamudio M.D. [id number]
[2023-02-16 20:38] LABS: Troponin 5 2HR 6.95 ng/L (0-10)
[2023-02-16] MEDS: diphenoxylate/atropine Tablet 2 TAB PO (20:48)
[2023-02-16 20:50] VITALS: BP 131/89; PULSE 89; RESP 16; O2SAT 96
== END 2023-02-16 20:55 | disposition home or self-care (01) ==
PROVIDERS: Emergency Medicine; Emergency Provider Nurse Practitioner Family; PCP Family Medicine
DX: K52.9 Noninfective gastroenteritis and colitis, unspecified (principal); Z11.52 Encounter for screening for COVID-19; G35 Multiple sclerosis; E11.9 Type 2 diabetes mellitus without complications; F17.210 Nicotine dependence, cigarettes, uncomplicated
CPT/HCPCS: 36415; 71045; 74177; 80053; 81003; 83690; 84484; 85025; 87426; 87804; 93005; 96374; 96375; 99285; J2270; J2405; J7030; Q9967

== ENCOUNTER → 2023-03-21 10:48 | Outpatient (BNVA) | payer MEDICARE, SELFPAY | PROVIDERS: PCP Family Medicine; Visit Provider Family Medicine | DX: R19.7 Diarrhea, unspecified (principal); K21.9 Gastro-esophageal reflux disease without esophagitis; F41.9 Anxiety disorder, unspecified; F32.9 Major depressive disorder, single episode, unspecified; M54.42 Lumbago with sciatica, left side; Z13.6 Encounter for screening for cardiovascular disorders | CPT/HCPCS: 80053 ==

== ENCOUNTER → 2023-03-30 09:49 | Outpatient (BNVA) | payer MEDICARE, SELFPAY | PROVIDERS: PCP Family Medicine; Visit Provider Specialist | DX: G43.711 Chronic migraine without aura, intractable, with status migrainosus (principal); G35 Multiple sclerosis; G37.9 Demyelinating disease of central nervous system, unspecified; M47.12 Other spondylosis with myelopathy, cervical region; M47.22 Other spondylosis with radiculopathy, cervical region; M54.42 Lumbago with sciatica, left side | CPT/HCPCS: 64615; 99213 ==

== ENCOUNTER → 2023-04-07 10:52 | Outpatient (BNVA) | payer MEDICARE, SELFPAY | PROVIDERS: PCP Family Medicine; Visit Provider Emergency Medicine | DX: M19.012 Primary osteoarthritis, left shoulder (principal); M25.512 Pain in left shoulder; G89.11 Acute pain due to trauma | CPT/HCPCS: 73030 ==

== ENCOUNTER → 2023-04-25 09:04 | Outpatient (BNVA) | payer MEDICARE, SELFPAY | PROVIDERS: PCP Family Medicine; Visit Provider Surgery | DX: R19.7 Diarrhea, unspecified (principal); K21.9 Gastro-esophageal reflux disease without esophagitis | CPT/HCPCS: 99204; 99214 ==

== ENCOUNTER 2023-05-16 09:40 | Outpatient (CLI) | payer MEDICARE, SELFPAY | END 2023-05-16 09:41 | disposition home or self-care (01) | LOC: LAB 09:42 | PROVIDERS: PCP Family Medicine; Visit Provider Surgery | DX: R19.7 Diarrhea, unspecified (principal) | CPT/HCPCS: 83630; 83993 ==

== ENCOUNTER → 2023-06-29 09:45 | Outpatient (BNVA) | payer MEDICARE, SELFPAY | PROVIDERS: PCP Family Medicine; Visit Provider Specialist | DX: G82.20 Paraplegia, unspecified (principal); G35 Multiple sclerosis; G43.711 Chronic migraine without aura, intractable, with status migrainosus | CPT/HCPCS: 64615; 99213 ==

== ENCOUNTER 2023-07-27 06:47 | Day surgery (SDC) | payer MEDICARE, SELFPAY ==
--- NOTE | 2023-07-27 06:36 | W.PM.OPSFHP ---
Same Day Surgery H&P Indication for Procedure/HPI DATE OF PROCEDURE: July 27, 2023 CHIEF COMPLAINT/INDICATIONFOR SURGICAL PROCEDURE: abdominal pain and need for screening colonoscopy PREOP DIAGNOSIS: need for screening colonoscopy PLANNED PROCEDURE: Operation Date: 07/27/23 07:40 Proposed Procedures p [id number] egd [id number] colon G0105 screen colon H risk R19.7,K21.9(Not Applicable) - Reinaldo Solis MD s Colonoscopy(Not Applicable) - Reinaldo Solis MD Medications/Allergies* Home Medications Medication Instructions Recorded Confirmed Type cetirizine 10 mg capsule (All Day 10 mg PO DAILY@0700 07/03/20 07/26/23 History Allergy (cetirizine)) albuterol sulfate 90 mcg/actuation 2 puff inhalation QID PRN 07/25/23 07/26/23 History aerosol inhaler Shortness Of Breath Or Wheezing buspirone 5 mg tablet 5 mg PO BID 07/25/23 07/26/23 History montelukast 10 mg tablet 10 mg PO BEDTIME 07/25/23 07/26/23 History quetiapine 100 mg tablet 100 mg PO BEDTIME 07/25/23 07/26/23 History tamsulosin 0.4 mg capsule 0.4 mg PO DAILY 07/25/23 07/26/23 History tizanidine 2 mg tablet 2 mg PO TID 07/25/23 07/26/23 History zonisamide 100 mg capsule 400 mg PO DAILY 07/25/23 07/26/23 History duloxetine 60 mg capsule,delayed 60 mg PO BID 07/26/23 07/26/23 History release pantoprazole 40 mg tablet,delayed 40 mg PO BID 07/26/23 07/26/23 History release Allergies/Adverse Reactions Allergy/AdvReac Type Severity Reaction Status Date / Time natalizumab [From Tysabri] Allergy ALGY-Anaphy Verified 06/29/23 10:05 laxis venom-honey bee Allergy Unknown Verified 06/29/23 10:05 Pertinent History/Comorbid Conditions* Medical History (Updated 06/29/23 @ 11:23 by Domenica Simon MD) Herpes zoster dermatitis Malignant hyperthermia Neurogenic bladder Cervical disc disease Cervical disc disorder with myelopathy of mid-cervical region Multiple sclerosis Chronic neck pain with abnormal neurologic examination Chronic migraine without aura, intractable, with status migrainosus Mild cognitive impairment Recurrent UTI Incomplete bladder emptying Multiple sclerosis GERD (gastroesophageal reflux disease) DM II (diabetes mellitus, type II), controlled Surgical History (Updated 09/09/19 @ 12:52 by Rick Benjamin MD) H/O: hysterectomy H/O tubal ligation H/O carpal tunnel repair History of appendectomy History of cholecystectomy History of tonsillectomy and adenoidectomy H/O rotator cuff surgery Family History (Updated 04/25/23 @ 09:20 by THERESA Lainez) Colon cancer Mother Diabetes CAD (coronary artery disease) Multiple sclerosis Hypertension Stroke Social History Smoking and tobacco/nicotine status: current every day tobacco/nicotine user cigarettes Packs smoked per day: 0.5 Alcohol intake: never Substance/Drug Use: never Lives independently: Yes Marital status: / Current occupational status: disabled Pertinent Exam Findings alert, oriented x 3, clear to auscultation bilaterally and regular rate & rhythm Recommendations Surgery/Procedure today Coding Level of Care Code Acute Code for Chg Fwd
[2023-07-27 07:00] VITALS: BP 129/99; PULSE 74; RESP 16; TEMP 36.1; O2SAT 99; BMI 25.7
--- NOTE | 2023-07-27 07:04 | P.ANESASSM_ITS ---
Pre-Anesthetic Assessment Height/Weight: Height 1.73 m Preop Diagnosis: need for screening colonoscopy Operation Date: 07/27/23 07:40 Proposed Procedures p [id number] egd [id number] colon G0105 screen colon H risk R19.7,K21.9(Not Applicable) - Reinaldo Solis MD s Colonoscopy(Not Applicable) - Reinaldo Solis MD Familial anesthetic complications: MALIGNANT HYPERTHERMIA Was Beta Yumiko taken within 24 hours: N/A Was Clonidine taken within 24 hours: N/A Last intake: Solids- 07/25/23; liquids 07/26/23 @2000 Social Tobacco (0.5 ppd x36 years ) and No alcohol Exam alert, oriented x 3 and clear to auscultation bilaterally Airway Mallampati: Class I Dentition: false (upper and lower) History/ROS No significant history except as noted Pulmonary Chronic Obstructive Pulmonary Disease CV/HEM None reported None reported Hepatic None reported GI Gastroesophageal Reflux Disease gastric sleeve in 2019 Metabolic None reported Neuropsych MS Anesthetic Plan ASA status: 3 Anesthesia: Anesthesia Evaluation and MAC Risk of > 500 ml blood loss (7ml/kg in children): No Medications/Allergies Home Medications Medication Instructions Recorded Confirmed Last Taken Type nebulizer #1 ea 01/23/20 06/29/23 Unknown Rx cetirizine 10 mg capsule (All Day 10 mg PO DAILY@0700 07/03/20 07/26/23 07/26/23 History Allergy (cetirizine)) Walker #1 ea 02/24/21 06/29/23 Unknown Rx catheter 12 Fr #100 ea 08/27/21 06/29/23 Unknown Rx albuterol sulfate 2.5 mg/3 mL 2.5 mg (3 mL) inhalation Q4H PRN 11/12/21 07/27/23 07/23/23 Rx (0.083 %) solution for nebulization shortness of breath or wheezing 90 days #180 mL fluticasone propionate 50 1 spray intranasal BID@0700,1900 02/28/22 07/27/23 07/26/23 Rx mcg/actuation nasal 90 days #54.6 mL spray,suspension (Flonase Allergy Relief) Foot Drop Braces #1 ea 08/10/22 06/29/23 Unknown Rx ocrelizumab 30 mg/mL intravenous See Rx Instructions .Route 11/07/26/23 02/09/23 Rx solution (Ocrevus) .COMPLEX #20 mL atorvastatin 40 mg tablet 40 mg PO .qhs #90 tabs 02/23/23 07/27/23 07/26/23 Rx fenofibrate nanocrystallized 145 145 mg PO DAILY@0700 90 days #90 02/23/23 07/27/23 07/26/23 Rx mg tablet tabs onabotulinumtoxinA 100 unit 155 unit IM Q90D #2 ea 03/27/23 07/26/23 07/05/23 Rx solution for injection (Botox) diclofenac sodium 1 % topical gel 2 g topical QID #100 grams 04/07/23 07/27/23 07/26/23 Rx (Arthritis Pain (diclofenac)) doxycycline hyclate 100 mg tablet 100 mg PO BID #20 tabs 05/09/23 07/27/23 07/26/23 Rx molnupiravir 200 mg capsule (EUA) 800 mg (4 x 200 mg) PO Q12H 5 days 05/09/23 07/27/23 07/26/23 Rx #40 caps duloxetine 30 mg capsule,delayed See Rx Instructions .Route 06/16/23 07/27/23 07/26/23 Rx release .COMPLEX #90 caps albuterol sulfate 90 mcg/actuation 2 puff inhalation QID PRN 07/25/23 07/27/23 07/23/23 History aerosol inhaler Shortness Of Breath Or Wheezing buspirone 5 mg tablet 5 mg PO BID 07/25/23 07/27/23 07/26/23 History montelukast 10 mg tablet 10 mg PO BEDTIME 07/25/23 07/27/23 07/26/23 History quetiapine 100 mg tablet 100 mg PO BEDTIME 07/25/23 07/27/23 07/26/23 History tamsulosin 0.4 mg capsule 0.4 mg PO DAILY 07/25/23 07/27/23 07/26/23 History tizanidine 2 mg tablet 2 mg PO TID 07/25/23 07/27/23 07/26/23 History zonisamide 100 mg capsule 400 mg PO DAILY 07/25/23 07/27/23 07/26/23 History duloxetine 60 mg capsule,delayed 60 mg PO BID 07/26/23 07/27/23 07/26/23 History release pantoprazole 40 mg tablet,delayed 40 mg PO BID 07/26/23 07/27/23 07/26/23 History release Allergies Allergy/AdvReac Type Severity Reaction Status Date / Time natalizumab [From Tysabri] Allergy ALGY-Anaphy Verified 06/29/23 10:05 laxis venom-honey bee Allergy Unknown Verified 06/29/23 10:05 [facility] Anesthesia Medical History Herpes zoster dermatitis Malignant hyperthermia Neurogenic bladder Cervical disc disease Cervical disc disorder with myelopathy of mid-cervical region Multiple sclerosis Chronic neck pain with abnormal neurologic examination Chronic migraine without aura, intractable, with status migrainosus Mild cognitive impairment Recurrent UTI Incomplete bladder emptying Multiple sclerosis GERD (gastroesophageal reflux disease) DM II (diabetes mellitus, type II), controlled Surgical History H/O: hysterectomy H/O tubal ligation H/O carpal tunnel repair History of appendectomy History of cholecystectomy History of tonsillectomy and adenoidectomy H/O rotator cuff surgery Family History Mother Colon cancer Other CAD (coronary artery disease) Diabetes Hypertension Multiple sclerosis Stroke Social History Smoking and tobacco/nicotine status: current every day tobacco/nicotine user cigarettes Packs smoked per day: 0.5 Alcohol intake: never Substance/Drug Use: never Lives independently: Yes Marital status: / Current occupational status: disabled Female Reproductive History Para: 3 Spontaneous abortions: Yes Data Anesthesia Cardiac Studies: No Data to Display
[2023-07-27] MEDS: sodium chloride 0.9% 1,000 ML 30 ML IV (07:16)
[2023-07-27 08:31] VITALS: BP 108/65; PULSE 64; RESP 12; TEMP 36.6; O2SAT 98
[2023-07-27 08:46] VITALS: BP 112/71; PULSE 69; RESP 16; TEMP 36.9; O2SAT 97
--- NOTE | 2023-07-27 08:49 | PC.NURSE ---
Pt c/o skin torn . Superficial shearing noted on lower left abdomen and left groin area. Dr. Solis notified. He assessed area and recommended patient apply triple antibiotic ointment, keep area clean and dry. States the superficial shearing is due to pressure on abdomen to advance scope. Patient verbalizes understanding.
--- NOTE | 2023-07-27 09:20 | ANE.PACU2 ---
Inpatient post-anesthesia follow up: Airway intact: Yes Vital signs: Temperature 98.5 F Pulse Rate 69 Respiratory Rate 16 Blood Pressure 112/71 Pulse Oximetry 97 Oxygen Delivery Me thod Room Air Oxygen Flow Rate Fraction of Inspir ed Oxygen Hydration adequate: Yes Nausea and vomiting: No Pain level: 1 Mental status: Baseline
== END 2023-07-27 09:20 | disposition home or self-care (01) ==
PROVIDERS: PCP Family Medicine; Visit Provider Surgery
PROC: 0DJ08ZZ Inspection of Upper Intestinal Tract, Via Natural or Artificial Opening Endoscopic (ICD-10-PCS; CPT 43235; principal; 2023-07-27 07:40)
PROC: 0DJD8ZZ Inspection of Lower Intestinal Tract, Via Natural or Artificial Opening Endoscopic (ICD-10-PCS; CPT 45378; 2023-07-27 07:40)
DX: Z12.11 Encounter for screening for malignant neoplasm of colon (principal); D12.2 Benign neoplasm of ascending colon; D12.3 Benign neoplasm of transverse colon; D12.8 Benign neoplasm of rectum; K29.50 Unspecified chronic gastritis without bleeding; K21.9 Gastro-esophageal reflux disease without esophagitis; E11.9 Type 2 diabetes mellitus without complications; G35 Multiple sclerosis; F17.210 Nicotine dependence, cigarettes, uncomplicated; J44.9 Chronic obstructive pulmonary disease, unspecified; Z98.84 Bariatric surgery status; K44.9 Diaphragmatic hernia without obstruction or gangrene
CPT/HCPCS: 43239; 45385; 88305; J2704; J7030

== ENCOUNTER → 2023-08-09 08:50 | Outpatient (BNVA) | payer MEDICARE, SELFPAY | PROVIDERS: PCP Family Medicine; Visit Provider Surgery | DX: Z09 Encounter for follow-up examination after completed treatment for conditions other than malignant neoplasm (principal) | CPT/HCPCS: 99213 ==

== ENCOUNTER 2023-09-27 07:52 | Oncology outpatient (recurring) (ONCR) | payer MEDICARE, SELFPAY ==
[2023-09-27 08:13] VITALS: BMI 25.2
[2023-09-27] MEDS: sodium chloride 0.9% 250 ML 75 ML IV (08:54)
[2023-09-27] MEDS: methylPREDNISolone sod succ 125 mg/2 mL INJ IVP (08:55)
[2023-09-27] MEDS: acetaminophen 500 mg Tablet 1000 MG PO (08:56)
[2023-09-27] MEDS: diphenhydrAMINE 50 mg/mL SDV 1mL 25 MG IVP (09:01)
[2023-09-27] MEDS: ocrelizumab 600 MG in sodium chloride 0.9% 500 ML 100 MG IV (09:30)
[2023-09-27 09:36] VITALS: BP 107/67; PULSE 63; RESP 16; TEMP 36.6; O2SAT 98
[2023-09-27 09:45] VITALS: BP 106/66; BP 117/84; PULSE 66; PULSE 70; RESP 16; TEMP 36; O2SAT 94; O2SAT 95
[2023-09-27 10:15] VITALS: BP 117/81; PULSE 71; RESP 16; TEMP 36.2; O2SAT 96
[2023-09-27 12:00] VITALS: BP 114/81; PULSE 72; RESP 16; TEMP 36.7; O2SAT 93
== END 2023-09-27 23:59 | disposition home or self-care (01) ==
PROVIDERS: PCP Family Medicine Adult Medicine; Visit Provider Specialist
DX: G35 Multiple sclerosis (principal); Z79.620 Long term (current) use of immunosuppressive biologic; Z79.899 Other long term (current) drug therapy
CPT/HCPCS: 96365; 96366; 96375; J1200; J2350; J2919; J7040; J7050

== ENCOUNTER → 2023-10-12 10:00 | Outpatient (BNVA) | payer MEDICARE, SELFPAY | PROVIDERS: PCP Family Medicine Adult Medicine; Visit Provider Specialist | DX: G82.20 Paraplegia, unspecified (principal); G35 Multiple sclerosis; G43.711 Chronic migraine without aura, intractable, with status migrainosus | CPT/HCPCS: 64615; 99213 ==

== ENCOUNTER → 2023-12-04 12:43 | Outpatient (BNVA) | payer MEDICARE, SELFPAY | PROVIDERS: PCP Family Medicine Adult Medicine; Visit Provider Nurse Practitioner Family | DX: N39.0 Urinary tract infection, site not specified (principal) | CPT/HCPCS: 81000 ==

== ENCOUNTER → 2023-12-08 14:40 | Outpatient (BNVA) | payer MEDICARE, SELFPAY | PROVIDERS: PCP Family Medicine; Visit Provider Family Medicine | DX: E78.5 Hyperlipidemia, unspecified (principal); E55.9 Vitamin D deficiency, unspecified; E11.9 Type 2 diabetes mellitus without complications; Z98.84 Bariatric surgery status; E53.8 Deficiency of other specified B group vitamins; K21.9 Gastro-esophageal reflux disease without esophagitis; G43.711 Chronic migraine without aura, intractable, with status migrainosus; G35 Multiple sclerosis; G62.9 Polyneuropathy, unspecified | CPT/HCPCS: 80053; 80061; 82306; 82607; 83036; 84443; 85025 ==

== ENCOUNTER 2023-12-21 09:52 | Outpatient (CLI) | payer MEDICARE, SELFPAY ==
--- NOTE | 2023-12-21 10:15 | CT_ITS ---
WS: [id number] LDCT LUNG CANCER SCREENING HISTORY: 30pk yr hx; zack dep remission; quit 2018 TECHNIQUE: Axial imaging performed from the apices to 1 cm below the costophrenic angles. Coronal and sagittal reformats are submitted with axial MIP series. All CT scans at [facility] use at least one of these dose optimization techniques: automated exposure control; mA and/or kV adjustment per patient size (includes targeted exams where dose is matched to clinical indication); or iterativ e reconstruction. DLP: 83.69 mGy.cm DIvol: Mean CTDIvol: 1.80 (mGy) COMPARISON: None available. Diagnostic quality: Satisfactory Lungs: Pulmonary hyperinflation is moderate. Pleural 6 mm nodule in the RIGHT lower lung is identifie d. No additional masses or nodules. No endobronchial lesions. Heart: Normal size heart with no pericardial effusion.. Other findings: Normal size aorta and pulmonary artery. Residual catheter, probably Port-A-Cath is no daija along the course of the LEFT subclavian vein. This is been present on prior examinations. Moderat e size hiatal hernia. Prior gastric bypass. Prior cholecystectomy. No adrenal mass. CT/CT lung screening [id number] IMPRESSION: LUNG-RADS: 3-Probably Benign FOLLOW UP: 6 Month LDCT OTHER FINDINGS (S MODIFIER): None.
== END 2023-12-21 09:53 | disposition home or self-care (01) ==
PROVIDERS: PCP Family Medicine; Visit Provider Family Medicine
DX: Z12.2 Encounter for screening for malignant neoplasm of respiratory organs (principal); F17.219 Nicotine dependence, cigarettes, with unspecified nicotine-induced disorders; R91.1 Solitary pulmonary nodule; J98.4 Other disorders of lung; K44.9 Diaphragmatic hernia without obstruction or gangrene; Z90.49 Acquired absence of other specified parts of digestive tract
CPT/HCPCS: 71271

== ENCOUNTER → 2024-01-12 13:33 | Outpatient (BNVA) | payer MEDICARE, SELFPAY | PROVIDERS: PCP Family Medicine; Visit Provider Specialist | DX: G82.20 Paraplegia, unspecified (principal); G35 Multiple sclerosis; G43.711 Chronic migraine without aura, intractable, with status migrainosus | CPT/HCPCS: 64642; 99212 ==

== ENCOUNTER → 2024-02-02 08:05 | Outpatient (BNVA) | payer MEDICARE, SELFPAY | PROVIDERS: PCP Family Medicine; Visit Provider Specialist | DX: G43.711 Chronic migraine without aura, intractable, with status migrainosus (principal); G82.20 Paraplegia, unspecified; G35 Multiple sclerosis | CPT/HCPCS: 64615; J0585 ==

== ENCOUNTER → 2024-04-26 11:23 | Outpatient (BNVA) | payer MEDICARE, SELFPAY | PROVIDERS: PCP Family Medicine; Visit Provider Specialist | DX: G82.20 Paraplegia, unspecified (principal); G35 Multiple sclerosis; G43.711 Chronic migraine without aura, intractable, with status migrainosus | CPT/HCPCS: 64642; 99212; J0585 ==

== ENCOUNTER → 2024-05-03 09:01 | Outpatient (BNVA) | payer MEDICARE, SELFPAY | PROVIDERS: PCP Family Medicine; Visit Provider Specialist | DX: G43.711 Chronic migraine without aura, intractable, with status migrainosus (principal) | CPT/HCPCS: 64615; 96372; J0585; J9999 ==

== ENCOUNTER 2024-05-14 07:34 | Oncology outpatient (recurring) (ONCR) | payer MEDICARE, SELFPAY ==
[2024-05-14 08:04] VITALS: BP 128/83; PULSE 70; TEMP 36.7; O2SAT 100
[2024-05-14] MEDS: sodium chloride 0.9% 250 ML 75 ML IV (08:26)
[2024-05-14] MEDS: methylPREDNISolone sod succ 125 mg/2 mL INJ IVP (08:27)
[2024-05-14] MEDS: acetaminophen 500 mg Tablet 1000 MG PO (08:27)
[2024-05-14] MEDS: diphenhydrAMINE 50 mg/mL SDV 1mL 25 MG IVP (08:33)
[2024-05-14] MEDS: ocrelizumab 600 MG in sodium chloride 0.9% 500 ML 100 MG IV (09:02)
[2024-05-14 09:20] VITALS: BP 120/80; PULSE 70; TEMP 36.5; O2SAT 97
[2024-05-14 09:35] VITALS: BP 143/76; PULSE 68; TEMP 36.6; O2SAT 97
[2024-05-14 10:08] VITALS: BP 118/76; PULSE 65; TEMP 36.6; O2SAT 95
[2024-05-14 10:38] VITALS: BP 121/76; PULSE 65; TEMP 36.6; O2SAT 94
[2024-05-14 11:53] VITALS: BP 112/75; PULSE 75; TEMP 36.5; O2SAT 95
== END 2024-05-20 23:59 | disposition home or self-care (01) ==
PROVIDERS: PCP Family Medicine; Visit Provider Specialist
DX: G35 Multiple sclerosis (principal); Z79.899 Other long term (current) drug therapy
CPT/HCPCS: 96375; 96413; 96415; A4222; J1200; J2350; J2919; J7040; J7050; J9999

== ENCOUNTER → 2024-06-07 10:01 | Outpatient (BNVA) | payer MEDICARE, SELFPAY | PROVIDERS: PCP Family Medicine; Visit Provider Family Medicine | DX: E11.9 Type 2 diabetes mellitus without complications (principal); E78.5 Hyperlipidemia, unspecified; E55.9 Vitamin D deficiency, unspecified; E53.8 Deficiency of other specified B group vitamins; R33.9 Retention of urine, unspecified; Z98.84 Bariatric surgery status | CPT/HCPCS: 80053; 80061; 82043; 82306; 82607; 83036; 83540; 84439; 84443; 85025 ==

== ENCOUNTER → 2024-08-12 11:50 | Outpatient (BNVA) | payer MEDICARE, SELFPAY | PROVIDERS: PCP Family Medicine; Visit Provider Specialist | DX: G82.20 Paraplegia, unspecified (principal); G35 Multiple sclerosis; G43.711 Chronic migraine without aura, intractable, with status migrainosus | CPT/HCPCS: 64642; 96372; 99213; J0585; J9999 ==

== ENCOUNTER → 2024-08-16 11:44 | Outpatient (BNVA) | payer MEDICARE, SELFPAY | PROVIDERS: PCP Family Medicine; Visit Provider Specialist | DX: G43.711 Chronic migraine without aura, intractable, with status migrainosus (principal); G35 Multiple sclerosis; G82.20 Paraplegia, unspecified | CPT/HCPCS: 64615; 99212; J0585; J9999 ==

== ENCOUNTER 2024-11-12 09:00 | Oncology outpatient (recurring) (ONCR) | payer MEDICARE, SELFPAY ==
[2024-10-30 09:28] VITALS: BP 101/71; PULSE 82; TEMP 36.3; O2SAT 96
[2024-11-12] MEDS: methylPREDNISolone sod succ 125 mg/2 mL INJ IVP (09:18)
[2024-11-12] MEDS: diphenhydrAMINE 50 mg/mL SDV 1mL 25 MG IVP (09:19)
[2024-11-12 10:02] VITALS: BP 127/68; PULSE 71; RESP 16; TEMP 36.2; O2SAT 98
[2024-11-12 10:20] VITALS: BP 92/62; PULSE 81; RESP 16; TEMP 36.2; O2SAT 98
[2024-11-12 10:38] VITALS: BP 101/68; PULSE 71; RESP 16; TEMP 36.3; O2SAT 97
[2024-11-12 11:07] VITALS: BP 101/70; PULSE 65; RESP 16; O2SAT 97
[2024-11-12 12:35] VITALS: BP 119/72; PULSE 73; RESP 16; TEMP 36.7; O2SAT 98
== END 2024-11-19 23:59 | disposition home or self-care (01) ==
PROVIDERS: PCP Family Medicine; Visit Provider Specialist
DX: G35 Multiple sclerosis; Z79.899 Other long term (current) drug therapy; Z53.9 Procedure and treatment not carried out, unspecified reason
CPT/HCPCS: 96375; 96413; 96415; J1200; J2350; J2919; J7040; J7050; J9999

== ENCOUNTER → 2024-11-28 11:12 | Outpatient (BNVA) | payer MEDICARE, SELFPAY | PROVIDERS: PCP Family Medicine; Visit Provider Specialist | DX: G82.20 Paraplegia, unspecified (principal); G35.D Multiple sclerosis, unspecified; G43.711 Chronic migraine without aura, intractable, with status migrainosus | CPT/HCPCS: 64642; 99212; J0585; J9999 ==

== ENCOUNTER → 2024-12-05 12:48 | Outpatient (BNVA) | payer MEDICARE, SELFPAY | PROVIDERS: PCP Family Medicine; Visit Provider Specialist | DX: G43.711 Chronic migraine without aura, intractable, with status migrainosus (principal); G35.D Multiple sclerosis, unspecified; G82.20 Paraplegia, unspecified | CPT/HCPCS: 64615; 99213; J0585; J9999 ==

== ENCOUNTER → 2024-12-09 13:57 | Outpatient (BNVA) | payer MEDICARE, SELFPAY | PROVIDERS: PCP Family Medicine; Visit Provider Family Medicine | DX: E11.9 Type 2 diabetes mellitus without complications (principal); Z11.59 Encounter for screening for other viral diseases; Z11.4 Encounter for screening for human immunodeficiency virus [HIV] | CPT/HCPCS: 83036; 86803; 87806 ==

== ENCOUNTER → 2024-12-24 10:57 | Outpatient (BNVA) | payer MEDICARE, SELFPAY | PROVIDERS: PCP Family Medicine; Visit Provider Surgery | DX: Z12.11 Encounter for screening for malignant neoplasm of colon (principal) | CPT/HCPCS: 99214 ==

== ENCOUNTER 2024-12-27 10:59 | Oncology outpatient (recurring) (ONCR) | payer MEDICARE, SELFPAY ==
--- NOTE | 2024-12-27 11:15 | CT_ITS ---
WS: [id number] LDCT LUNG CANCER SCREENING TECHNIQUE: Noncontrast CT of the chest with coronal and sagittal reformatted images. CLINICAL INFORMATION: smoker, screening; at least 30pk yr COMPARISON: 2023 DLP: 57.10 mGy.cm DIvol: Mean CTDIvol: 1.20 (mGy) All CT scans at [facility] use at least one of these dose optimization techniques: automated exposure control; mA and/or kV adjustment per patient size (includes targeted exams where dose is matched to clinical indication); or iterative reconstruction. FINDINGS: Hyperinflation. Pleural nodule RIGHT lower lobe measuring 6 mm unchanged. No new suspicious pulmonary parenchymal abnormalities. No mediastinal or hilar lymphadenopathy. No axillary lymphadenopathy. Normal thoracic aorta. Moderate esophageal hiatal hernia. Gastric bypass. Prior cholecystectomy. Moderate thoracic kyphosis with hypertrophic changes. CT/CT lung screening [id number] IMPRESSION: LUNG-RADS: 2-Benign Appearance or Behavior FOLLOW UP: 12 Month: Continue annual screening with LDCT
== END 2025-01-19 23:59 | disposition home or self-care (01) ==
LOC: ONCMED 11:02
PROVIDERS: PCP Family Medicine; Visit Provider Specialist
DX: Z12.2 Encounter for screening for malignant neoplasm of respiratory organs (principal); F17.210 Nicotine dependence, cigarettes, uncomplicated; R91.8 Other nonspecific abnormal finding of lung field; K44.9 Diaphragmatic hernia without obstruction or gangrene; Z98.84 Bariatric surgery status; Z90.49 Acquired absence of other specified parts of digestive tract; M40.294 Other kyphosis, thoracic region; M89.38 Hypertrophy of bone, other site
CPT/HCPCS: 71271

== ENCOUNTER 2025-02-06 07:37 | Day surgery (SDC) | payer MEDICARE, SELFPAY ==
[2025-02-06 07:59] VITALS: BP 97/75; PULSE 82; RESP 18; TEMP 36.3; O2SAT 96; BMI 24.7
--- NOTE | 2025-02-06 08:09 | P.HP_ITS ---
Same Day Surgery H&P Indication for Procedure/HPI DATE OF PROCEDURE: February 06, 2025 CHIEF COMPLAINT/INDICATIONFOR SURGICAL PROCEDURE: encounter for screening colonoscopy PREOP DIAGNOSIS: history of colon polyps PLANNED PROCEDURE: Operation Date: 02/06/25 09:15 Proposed Procedures p Colonoscopy 58649 G0121 Z12.11(Not Applicable) - Reinaldo Solis MD Medications/Allergies* Home Medications ?Medication ?Instructions ?Recorded ?Confirmed ?Type cetirizine 10 mg capsule (All Day 10 mg PO DAILY@0700 07/03/20 02/06/25 History Allergy (cetirizine)) albuterol sulfate 90 mcg/actuation 2 puff inhalation Q ID PRN 02/03/25 02/03/25 History aerosol inhaler shortness of breath buspirone 5 mg tablet 5 mg PO BID 02/03/25 5 History diclofenac sodium 1 % topical gel 2 g topical QID PRN Pain 02/03/25 02/03/25 History (Arthritis Pain (diclofenac)) duloxetine 30 mg capsule,delayed 30 mg PO DAILY 02/06/25 History release zonisamide 100 mg capsule 400 mg PO BEDTIME 02/03/25 1 04/09/24 History Allergies/Adverse Reactions Allergy/AdvReac Type Severity Reaction Status Date / Time natalizumab (From [facility]) Allergy ALGY-Anaphy Verified 02/03/25 09:00 laxis venom-honey bee Allergy Unknown Verified 02/03/25 09:00 venom-wasp Allergy ALGY-Anaphy Verified 02/03/25 09:00 laxis Pertinent History/Comorbid Conditions* Medical History (Updated 12/27/24 @ 12:16 by Carol Aviles MD) Screening for lung cancer LDCT done 12.27.24--repeat one year Nicotine dependence, cigarettes, uncomplicated Anxiety and depression Dyslipidemia Other polyneuropathy COPD (chronic obstructive pulmonary disease) Allergic rhinitis Post-menopausal Vitamin D deficiency Vitamin B12 deficiency Chronic migraine without aura, intractable, with status migrainosus Hyperplastic colonic polyp, unspecified part of colon 07/27/2023 EGD and colonoscopy with hyperplastic polyps and tubular adenoma polyps removed by Dr. Solis Psychophysiological insomnia Malignant hyperthermia hx of this Multiple sclerosis managed by neuro--on Q6 month Ocrevus Chronic neck pain with abnormal neurologic examination Recurrent UTI Incomplete bladder emptying due to MS; self cath tid; tamsulosin helps GERD (gastroesophageal reflux disease) DM II (diabetes mellitus, type II), controlled Surgical History (Updated 09/03/24 @ 10:02 by Carol Aviles MD) Bariatric surgery status S/P laparoscopic sleeve gastrectomy Hx of bariatric surgery gastric sleeve first; then 01/13 at [facility] had Angelia-en-Y bypass and hiatal hernia repair History of ankle surgery R ankle Hx of decompression of ulnar nerve L Hx of colonoscopy [place] 07/27/2023 with multiple polyps History of esophagogastroduodenoscopy (EGD) Dr Solis 07/27/2023 with large hiatal hernia and gastritis H/O: hysterectomy hyst w/ BSO no cancer H/O tubal ligation H/O carpal tunnel repair bilateral History of appendectomy History of cholecystectomy History of tonsillectomy and adenoidectomy H/O rotator cuff surgery right Family History (Updated 04/25/23 @ 09:20 by THERESA Lainez) Colon cancer Mother Diabetes CAD (coronary artery disease) Multiple sclerosis Hypertension Stroke Social History Smoking and tobacco/nicotine status: former use of tobacco/nicotine Alcohol intake: never Substance/Drug Use: never Lives independently: Yes Household members: spouse and family Marital status: Number of children: 3 Highest education level completed: Bachelor's Degree Current occupational status: disabled 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
--- NOTE | 2025-02-06 09:29 | ANES.PREANE2 ---
Pre-Anesthetic Assessment Height/Weight: Height 5 ft 8.5 in Weight 165 lb Temp Pulse Resp BP Pulse Ox O2 Del Method 97.4 F L 82 18 97/75 96 Room Air 02/06/25 07:59 02/06/25 07:59 02/06/25 07:59 02/06/25 07:59 02/06/25 07:59 02/06/25 07:59 Preop Diagnosis: history of colon polyps Operation Date: 02/06/25 09:15 Proposed Procedures p Colonoscopy 95870 G0121 Z12.11(Not Applicable) - Reinaldo Solis MD Was Beta Yumiko taken within 24 hours: N/A Was Clonidine taken within 24 hours: N/A Last intake: Intake Last Liquid Date 02/05/25 Last Liquid Time 20:00 Last Solid Date 02/04/25 Last Solid Time 22:00 Social No alcohol and No tobacco Exam alert, oriented x 3, clear to auscultation bilaterally and regular rate & rhythm Airway Submandibular: within normal limits Cervical ROM: within normal limits Mallampati: Class III Anesthetic Plan ASA status: 3 Anesthesia: MAC Other: History of MH, states she had an appendectomy and had an episode of MH where she had to have transfusions Completed bowel prep Current smoker S/p bariatric surgery COPD Plan for MAC anesthesia Medications/Allergies Home Medications ?Medication ?Instructions ?Recorded ?Confirmed ?Last Taken ?Type nebulizer #1 ea 01/23/20 02/06/25 02/05/25 Rx cetirizine 10 mg capsule (All Day 10 mg PO DAILY@0700 07/03/20 02/06/25 02/05/25 History Allergy (cetirizine)) Walker #1 ea 02/24/21 02/06/25 02/05/25 Rx catheter 12 Fr #100 ea 08/27/21 02/06/25 02/05/25 Rx Foot Drop Braces #1 ea 08/10/22 02/06/25 02/05/25 Rx ocrelizumab 30 mg/mL intravenous See Rx Instructions .Route 01/16/23 02/03/25 3 Months Ago Rx solution (Ocrevus) .COMPLEX #20 mL ~10/06/24 onabotulinumtoxinA 100 unit 300 unit IM Q90D #3 ea 10/16/23 02/03/25 1 Month Ago Rx solution for injection (Botox) ~10/17/25 12 Syrian self catheter set #10 ea 12/27/23 02/06/25 02/05/25 Rx onabotulinumtoxinA 100 unit 155 unit IM Q90D #2 ea 01/12/24 02/03/25 1 Month Ago Rx solution for injection (Botox) ~12/06/24 epinephrine 0.3 mg/0.3 mL 0.3 mg (0.3 mL) IM Q15M PRN 04/04/24 02/03/25 Unknown Rx injection, auto-injector (EpiPen anaphylaxis #2 ea 2-Sinan) fluticasone propionate 50 1 spray intranasal BID@0700,1900 04/16/24 02/03/25 02/03/25 Rx mcg/actuation nasal 90 days #54.6 mL spray,suspension (Flonase Allergy Relief) cholecalciferol (vitamin D3) 125 125 mcg PO DAILY #100 caps 06/08/24 02/06/25 02/05/25 Rx mcg (5,000 unit) capsule cyanocobalamin (vitamin B-12) 1,000 mcg IM .qw #10 mL 06/08/24 02/06/25 02/05/25 Rx 1,000 mcg/mL injection solution syringe with needle 1 mL 25 gauge #100 ea 06/08/24 02/06/25 02/05/25 Rx x 5/8 (Aktino Luer Slip Syringe-Needle) cyclobenzaprine 10 mg tablet 10 mg PO TID PRN muscle spasm #270 09/03/24 02/06/25 02/05/25 Rx tabs albuterol sulfate 2.5 mg/3 mL 2.5 mg (3 mL) inhalation Q4H PRN 10/16/24 02/03/25 Unknown Rx (0.083 %) solution for nebulization shortness of breath or wheezing 90 days #180 mL atorvastatin 40 mg tablet 40 mg PO BEDTIME #30 tabs 10/30/24 02/06/25 02/05/25 Rx doxepin 50 mg capsule 50 mg PO .q hs insomnia #30 caps 10/30/24 02/06/25 02/05/25 Rx duloxetine 60 mg capsule,delayed 60 mg PO DAILY #30 caps 10/30/24 02/06/25 02/05/25 Rx release quetiapine 100 mg tablet (Seroquel) 150 mg (1.5 x 100 mg) PO .qpm #45 11/16/24 02/06/25 02/05/25 Rx tabs Diabetic shoes, socks #1 ea 12/09/24 02/06/25 02/05/25 Rx ondansetron 8 mg disintegrating 8 mg PO Q8H PRN nausea and 01/09/25 02/03/25 Unknown Rx tablet vomiting #3 tabs nystatin 100,000 unit/gram topical 1 applic topical BID apply as 01/14/25 02/06/25 02/05/25 Rx powder directed to rash #60 grams montelukast 10 mg tablet 10 mg PO DAILY #90 tabs 01/27/25 02/06/25 02/05/25 Rx tamsulosin 0.4 mg capsule 0.4 mg PO DAILY #90 caps 01/27/25 02/06/25 02/05/25 Rx tizanidine 2 mg tablet 2 mg PO TID #270 tabs 01/27/25 02/06/25 02/05/25 Rx albuterol sulfate 90 mcg/actuation 2 puff inhalation QID PRN 02/03/25 02/03/25 Unknown History aerosol inhaler shortness of breath buspirone 5 mg tablet 5 mg PO BID 02/03/25 02/06/25 02/05/25 History diclofenac sodium 1 % topical gel 2 g topical QID PRN Pain 02/03/25 02/03/25 Unknown History (Arthritis Pain (diclofenac)) duloxetine 30 mg capsule,delayed 30 mg PO DAILY 02/03/25 02/06/25 02/05/25 History release zonisamide 100 mg capsule 400 mg PO BEDTIME 02/03/25 02/06/25 02/05/25 History Allergies Allergy/AdvReac Type Severity Reaction Status Date / Time desflurane Allergy Severe Unresponsiv Verified 02/06/25 09:11 e sevoflurane Allergy Severe Unresponsiv Verified 02/06/25 09:12 e succinylcholine Allergy Severe Unresponsiv Verified 02/06/25 09:11 e natalizumab (From Tysabri) Allergy ALGY-Anaphy Verified 02/03/25 09:00 laxis venom-honey bee Allergy Unknown Verified 02/03/25 09:00 venom-wasp Allergy ALGY-Anaphy Verified 02/03/25 09:00 laxis Current Medications Generic Name Dose Route Start Last Admin Trade Name Freq PRN Reason Stop Dose Admin Sodium Chloride 1,000 mls @ 15 mls/hr 02/06/25 07:47 02/06/25 08:16 Sodium Chloride 0.9% IV 02/07/25 07:46 15 mls/hr .Q24H PRN Administration COLONOSCOPY FLUIDS PFSH Anesthesia Medical History (Updated 12/27/24 @ 12:16 by Carol Aviles MD) Screening for lung cancer LDCT done 12.27.24--repeat one year Nicotine dependence, cigarettes, uncomplicated Anxiety and depression Dyslipidemia Other polyneuropathy COPD (chronic obstructive pulmonary disease) Allergic rhinitis Post-menopausal Vitamin D deficiency Vitamin B12 deficiency Chronic migraine without aura, intractable, with status migrainosus Hyperplastic colonic polyp, unspecified part of colon 07/27/2023 EGD and colonoscopy with hyperplastic polyps and tubular adenoma polyps removed by Dr. Solis Psychophysiological insomnia Malignant hyperthermia hx of this Multiple sclerosis managed by neuro--on Q6 month Ocrevus Chronic neck pain with abnormal neurologic examination Recurrent UTI Incomplete bladder emptying due to MS; self cath tid; tamsulosin helps GERD (gastroesophageal reflux disease) DM II (diabetes mellitus, type II), controlled Surgical History Bariatric surgery status S/P laparoscopic sleeve gastrectomy Hx of bariatric surgery gastric sleeve first; then 01/13 at [facility] had Angelia-en-Y bypass and hiatal hernia repair History of ankle surgery R ankle Hx of decompression of ulnar nerve L Hx of colonoscopy [place] 07/27/2023 with multiple polyps History of esophagogastroduodenoscopy (EGD) Dr Solis 07/27/2023 with large hiatal hernia and gastritis H/O: hysterectomy hyst w/ BSO no cancer H/O tubal ligation H/O carpal tunnel repair bilateral History of appendectomy History of cholecystectomy History of tonsillectomy and adenoidectomy H/O rotator cuff surgery right Family History Mother Colon cancer Other CAD (coronary artery disease) Diabetes Hypertension Multiple sclerosis Stroke Social History (Updated 01/06/25 @ 09:08 by Saray Thomson RN) Smoking and tobacco/nicotine status: former use of tobacco/nicotine Alcohol intake: never Substance/Drug Use: never Lives independently: Yes Household members: spouse and family Marital status: Number of children: 3 Highest education level completed: Bachelor's Degree Current occupational status: disabled 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
[2025-02-06 09:40] VITALS: BP 107/64; PULSE 74; RESP 14; O2SAT 99
[2025-02-06 10:10] VITALS: BP 108/62; PULSE 76; RESP 16; O2SAT 100
--- NOTE | 2025-02-07 10:28 | ANE.PACU2 ---
Inpatient post-anesthesia follow up: Airway intact: Yes Vital signs: Temperature 97.4 F Pulse Rate 76 Respiratory Rate 16 Blood Pressure 108/62 Pulse Oximetry 100 Oxygen Delivery Me thod Room Air Oxygen Flow Rate Fraction of Inspir ed Oxygen Hydration adequate: Yes Nausea and vomiting: No Pain level: 1 Mental status: Baseline
== END 2025-02-06 10:28 | disposition home or self-care (01) ==
PROVIDERS: PCP Family Medicine; Visit Provider Surgery
PROC: 0DJD8ZZ Inspection of Lower Intestinal Tract, Via Natural or Artificial Opening Endoscopic (ICD-10-PCS; CPT 45378; principal; 2025-02-06 09:15)
DX: Z12.11 Encounter for screening for malignant neoplasm of colon (principal); D12.0 Benign neoplasm of cecum; K21.9 Gastro-esophageal reflux disease without esophagitis; F41.8 Other specified anxiety disorders; E78.5 Hyperlipidemia, unspecified; J44.9 Chronic obstructive pulmonary disease, unspecified; E11.9 Type 2 diabetes mellitus without complications; Z98.84 Bariatric surgery status; Z87.891 Personal history of nicotine dependence; Z80.0 Family history of malignant neoplasm of digestive organs
CPT/HCPCS: 45380; 45385; 88305; J2704; J7030